=== PATIENT | male | born 1990 | race Caucasian/White ===

== ENCOUNTER 2022-06-25 03:53 | Inpatient (IN) | payer OTHER, SELFPAY ==
[2022-06-25] VITALS (14 sets, daily range): BP systolic 94–124; BP diastolic 57–78; PULSE 92–116; RESP 14–27; TEMP 36.6–37.1; O2SAT 95–99; BMI 24.0
--- NOTE | ~2022-06-25 | CT_ITS ---
EXAMINATION: CT HEAD WITHOUT CONTRAST CLINICAL INFORMATION: Altered mental status COMPARISON: None TECHNIQUE: Contiguous axial imaging was performed from the skull base to vertex without intravenous administration of contrast. This CT examination was performed using dose optimization techniques as appropriate, variously including the following: *Automated exposure control *Adjustment of mA and/or kV according to patient size (this includes techniques or standardized protocols for targeted exams where dose is matched to indication/reason for exam; i.e. extremities or head) *Use of iterative reconstruction technique DLP: 716 mGy-cm FINDINGS: There is no evidence of acute intracranial hemorrhage or territorial infarction. No abnormal mass effect or midline shift is seen. Mendes to white matter differentiation is well preserved. No extra-axial fluid collections are identified. The ventricles are normal in size. There is no abnormal attenuation within the brain parenchyma. The osseous structures and soft tissues are normal. The mastoid air cells and visualized portions of the paranasal sinuses are well aerated. CT/CT head/brain wo con IMPRESSION: No acute intracranial pathology.
--- NOTE | ~2022-06-25 | XR_ITS ---
EXAMINATION: XR CHEST CLINICAL INFORMATION: Change in mental status COMPARISON: None TECHNIQUE: Frontal view of the chest was obtained. FINDINGS: No significant abnormality is noted involving the heart, lungs, mediastinum, bony thorax or soft tissues. XR/XR chest 1V IMPRESSION: Unremarkable examination.
[2022-06-25 04:11] LABS: Glucose, Whole Blood 496 mg/dL (60-115)
--- NOTE | 2022-06-25 04:16 | ECG_ITS ---
Test Reason : DIZZINESS Blood Pressure : / mmHG Vent. Rate : 108 BPM Atrial Rate : 108 BPM P-R Int : 146 ms QRS Dur : 072 ms QT Int : 390 ms P-R-T Axes : 049 064 041 degrees QTc Int : 522 ms Sinus tachycardia Otherwise normal ECG No previous ECGs available Referred By: Brayan Morillo Electronically Signed By:MATHEW DENISE MD
[2022-06-25 04:25] LABS: Basophils Absolute Auto 0.1 X10*3/uL (0.0-0.2); Basophils Percent Auto 0.4 % (0-2); Hematocrit 48.2 % (42.0-52.0); Hemoglobin 16.6 g/dl (14.0-18.0); Imm Gran Abs Auto 0.14 X10*3/uL (0.00-0.03); Imm Gran Pct Auto 0.8 % (0.0-0.4); Lymphocytes Absolute Auto 1.5 X10*3/uL (1.2-4.9); Lymphocytes Percent Auto 8.8 % (20-40); MANUAL DIFF FLAG NO; Mean Corpuscular HGB Conc 34.4 g/dl (31.0-36.0); Mean Corpuscular Hemoglobin 29.2 pg (27.0-33.0); Mean Corpuscular Volume 84.9 fL (80.0-98.0); Mean Platelet Volume 9.9 fL (9.4-12.4); Monocytes Absolute Auto 0.6 X10*3/uL (0.1-1.2); Monocytes Percent Auto 3.5 % (2-11); Neutrophils Absolute Auto 14.4 x10*3/uL (2.0-8.3); Neutrophils Percent Auto 86.5 % (45-73); Platelet Count 335 X10*3/uL (160-400); Red Blood Count 5.68 X10*6/uL (4.60-5.80); Red Cell Distribution Width 11.4 % (11.0-16.0); White Blood Count 16.7 X10*3/uL (4.8-10.8)
--- NOTE | 2022-06-25 04:25 | ED.AMS ---
HPI - Altered Mental Status General Chief Complaint: Dizziness Stated Complaint: diabetic, n/v, passed out Time Seen by Provider: 06/25/22 04:13 Source: patient and other (Gerri Washington) Mode of arrival: ambulatory Limitations: altered mental status History of Present Illness HPI narrative: 31-year-old male who is brought to the emergency department by his daniel Gerri for evaluation of altered mental status and weakness. The patient's fiancee states that he has diabetes for many years but is not taking any medications. She states that yesterday morning he was not acting right. He was angry and did not appear well. He then had multiple episodes of vomiting. He eventually became very weak and altered so she was able to bring him to the emergency department for evaluation. He was too weak to walk from the car to the emergency department and he was wheeled into triage. At triage she was lethargic and brought back into the emergency department. The patient was oriented to person and place, he told me that he has whole body hurts but he had no other complaints. According to his fiancee he has been very thirsty over the past week, he has been drinking a large amount of water and has been urinating frequently. The patient has been fully vaccinated for COVID-19, he received his 3rd vaccination on 05/21/2022 (1 month prior). MD complaint: altered mental status Onset (ago): day(s) (1) Timing confirmed by: other (Gerri Washington) Severity: severe Consistency of symptoms: getting Worse Context: diabetes (Untreated times many years) Associated symptoms: malaise and nausea/vomiting Related Data Allergies Allergy/AdvReac Type Severity Reaction Status Date / Time No Known Allergies Allergy Unverified 08/05/20 17:53 Review of Systems Review of Systems: Yes Unobtainable due to mental status [facility] Past Medical History [facility] Narrative: Past medical history: Diabetes mellitus. Social history: He denies tobacco, alcohol and drug use. Social History Social History Advance Directives: No Advance Directives Information Provided: No Physical Exam ED Vital Signs: Vital Signs - 24 hr 06/25/22 03:55 06/25/22 04:26 06/25/22 04:32 Temperature 98.7 F Pulse Rate 97 96 Respiratory Rate 14 23 H Blood Pressure 94/60 115/73 124/78 Pulse Oximetry 99 96 Oxygen Delivery Method Room Air Room Air 06/25/22 04:44 06/25/22 05:14 06/25/22 05:39 Temperature Pulse Rate 115 H 116 H 116 H Respiratory Rate 22 H 23 H Blood Pressure 123/73 124/70 108/61 Pulse Oximetry 98 99 98 Oxygen Delivery Method Room Air Room Air Room Air BMI result Body Mass Index 24.0 Const Other: Lethargic, weak appearing male patient, he is oriented to person and place, he is pleasant and cooperative [facility] Head: Yes normal to inspection, Yes normocephalic and Yes atraumatic Ears: external ears normal General nose exam: Normal external nose present Face and sinus: Yes normal facial exam Mouth: Normal oral and palatal mucosa present Throat: Yes posterior oropharynx normal Eyes General: appearance normal, both eyes and all related structures Pupils: Equal, round and reactive pupils present Neck Neck: Yes normal visual inspection, Yes no lymphadenopathy, Yes trachea midline and Yes supple Chest Chest palpation & inspection: normal inspection of the chest and normal palpation of entire chest wall Resp Effort & Inspection: normal respiratory effort and able to speak in complete sentences Auscultation: clear to auscultation bilaterally Cardio Rate: regular rate Rhythm: regular rhythm Heart sounds: S1 normal heart sound present, S2 normal heart sound present and no murmurs GI Inspection: Yes normal to inspection Palpation (GI): Soft to palpation, nontender and no guarding Auscultation: normal bowel sounds General: Yes no CVA tenderness Back/Spine/Pelvis Back: no CVA tenderness Skin General skin exam: no rashes or lesions noted Neuro Cranial nerves: Yes CN's II-XII intact bilaterally and Yes Equal, round and reactive pupils present Cognition (Neuro): normal cognition Motor exam (neuro): 5/5 motor strength present throughout Extrem Other: Patient is able to move all his extremities and hold them up against gravity without difficulty General: Yes normal to inspection Psych Appearance: grossly normal Mental Status: other (Lethargic but oriented to person and place) Speech and movement: Slowed speech present (Psych) Attitude: cooperative Course Course Course Narrative: 31-year-old male with a history of diabetes mellitus who has not been on medications for many years presents emergency department for evaluation of change in mental status which started yesterday morning and increased weakness. Patient's fiancee did note that the patient has had increased thirst increased urinary frequency. On presentation the patient is lethargic but oriented to person place and was able answer questions. The patient's neurologic exam is nonfocal. Patient's vital signs did reveal an elevated respiratory of 23 otherwise were unremarkable. Patient's point of care glucose was 527. I did order laboratory evaluation to include CBC, CMP, lactate, urine drug screen, urinalysis, acetone, COVID-19 . I will obtain a CT scan of the brain and chest x-ray as well. Patient was ordered to get normal saline IV x2 L and regular insulin 10 units IV. 0441: The lab did call a critical lab value on this patient. The patient's lactic acid is 9.3. The patient has been ordered to get 2 L of normal saline IV. 0604: I did receive a critical care glucose notification with a glucose pain 569. The patient's laboratory evaluation states revealed an elevated WBC 79434, elevated lactate 9.3, elevated glucose 569, bicarb of 16 with an an gap of 32. COVID-19 was negative phosphorus was normal at 4.7 pH was low at 7.25. Patient did complete his fluid bolus and had a repeat point of care glucose of 416. Patient was ordered to get a 2nd bolus of regular insulin 10 units IV. I did discuss the patient's presentation with the covering hospitalist who recommended patient get a repeat lactic acid and repeat BMP. Patient kept in the emergency department these tests repeated to determine if the patient needs to be admitted to the intermediate care unit or to the intensive care unit 0755: Patient's repeat BMP at 06:38 hours revealed a glucose of 369, bicarb of 13 and an anion gap 22. The patient's anion gap improved however his bicarb decreased. I ordered lactated Ringer's x1 L wide open and the patient will be started on an insulin drip as per protocol. CT scan of the brain revealed no acute pathology. Chest x-ray revealed no acute disease. I did discuss the patient's presentation with covering technical maintenance specialist, Dr. Jhonny Toro who recommended giving the patient oral potassium 40 mEq. Patient will be admitted to the intensive care unit for further treat. MDM - Altered Mental Status Lab Data Attestation: I reviewed the patient's lab results. Result diagrams: 06/25/22 04:18 06/25/22 06:38 Labs: Lab Results 06/25/22 06/25/22 06/25/22 Range/Units 04:03 04:15 04:18 WBC (4.8-10.8) X10*3/uL RBC (4.60-5.80) X10*6/uL Hgb (14.0-18.0) g/dl Hct (42.0-52.0) % MCV (80.0-98.0) fL MCH (27.0-33.0) pg MCHC (31.0-36.0) g/dl RDW (11.0-16.0) % Plt Count (160-400) X10*3/uL MPV (9.4-12.4) fL Immature Gran % (Auto) (0.0-0.4) % Neut % (Auto) (45-73) % Lymph % (Auto) (20-40) % Gregory % (Auto) (2-11) % Eos % (Auto) (0-4) % Baso % (Auto) (0-2) % Lymph # (Auto) (1.2-4.9) X10*3/uL Gregory # (Auto) (0.1-1.2) X10*3/uL Eos # (Auto) (0.0-0.4) X10*3/uL Baso # (Auto) (0.0-0.2) X10*3/uL Abs Immat Gran (auto) (0.00-0.03) X10*3/uL Absolute Neuts (auto) (2.0-8.3) x10*3/uL Absolute Nucleated RBC (0.0-0.012) X10*3/uL Nucleated RBC % (auto) (0.0-0.2) /100WBC PT (10.0-13.1) SEC INR (0.9-1.1) APTT (26.0-36.4) SEC VBG pH (7.32-7.43) VBG pCO2 mmHg VBG pO2 mmHg VBG HCO3 (22-26) mmol/L VBG O2 Saturation % VBG Base Excess mmol/L Sodium 140 (135-145) mmol/L Potassium 3.5 (3.3-5.1) mmol/L Chloride 96 (96-108) mmol/L Carbon Dioxide 16 L (22-29) mmol/L Anion Gap 32 H (12-20) BUN 10 (9-16) mg/dL Creatinine 1.68 H (0.5-1.4) mg/dL Estim Creat Clear Calc 52.3 Estimated GFR 47 POC Glucose 496 H* 526 H* (60-115) mg/dL Random Glucose 569 H* (60-115) mg/dL Lactic Acid (0.5-2.0) mmol/L Lactic Acid F/U @ 2Hr (0.5-2.0) mmol/L Calcium 10.2 (8.4-10.2) mg/dL Phosphorus 4.7 H (2.7-4.5) mg/dL Magnesium 2.0 (1.6-2.6) mg/dL Total Bilirubin 0.8 (0.0-1.0) mg/dL AST 59 H (5-37) U/L ALT 72 H (0-40) U/L Alkaline Phosphatase 75 (39-117) U/L Total Creatine Kinase 86 (38-174) U/L Troponin I High Sens (<3.5-35.0) ng/L Total Protein 8.7 H (6.5-8.0) g/dL Albumin 5.1 H (3.5-5.0) g/dL TSH (0.32-4.0) uIU/mL Urine Color Urine Appearance Urine pH (5.0-8.0) Ur Specific [place] (1.005-1.025) Urine Protein (NEG-TRACE) MG/DL Urine Glucose (UA) (NEG) MG/DL Urine Ketones (NEG) MG/DL Urine Blood (NEG) Urine Nitrite (NEG) Ur Leukocyte Esterase (NEG) Urine Opiates Screen (Not Detect) Urine Fentanyl Screen (Not Detect) Ur Barbiturates Screen (Not Detect) Ur Phencyclidine Scrn (Not Detect) Ur Amphetamines Screen (Not Detect) U Benzodiazepines Scrn (Not Detect) Urine Cocaine Screen (Not Detect) U Marijuana (THC) Screen (Not Detect) Ethyl Alcohol mg/dL Acetone, Qual (Negative) COVID-19 (MICHAEL) (Negative) COVID-19 Clin Com 06/25/22 06/25/22 06/25/22 Range/Units 04:18 04:18 04:18 WBC 16.7 H (4.8-10.8) X10*3/uL RBC 5.68 (4.60-5.80) X10*6/uL Hgb 16.6 (14.0-18.0) g/dl Hct 48.2 (42.0-52.0) % MCV 84.9 (80.0-98.0) fL MCH 29.2 (27.0-33.0) pg MCHC 34.4 (31.0-36.0) g/dl RDW 11.4 (11.0-16.0) % Plt Count 335 (160-400) X10*3/uL MPV 9.9 (9.4-12.4) fL Immature Gran % (Auto) 0.8 H (0.0-0.4) % Neut % (Auto) 86.5 H (45-73) % Lymph % (Auto) 8.8 L (20-40) % Gregory % (Auto) 3.5 (2-11) % Eos % (Auto) 0.0 (0-4) % Baso % (Auto) 0.4 (0-2) % Lymph # (Auto) 1.5 (1.2-4.9) X10*3/uL Gregory # (Auto) 0.6 (0.1-1.2) X10*3/uL Eos # (Auto) 0.0 (0.0-0.4) X10*3/uL Baso # (Auto) 0.1 (0.0-0.2) X10*3/uL Abs Immat Gran (auto) 0.14 H (0.00-0.03) X10*3/uL Absolute Neuts (auto) 14.4 H (2.0-8.3) x10*3/uL Absolute Nucleated RBC 0.000 (0.0-0.012) X10*3/uL Nucleated RBC % (auto) 0.0 (0.0-0.2) /100WBC PT 11.0 (10.0-13.1) SEC INR 1.0 (0.9-1.1) APTT 32.0 (26.0-36.4) SEC VBG pH (7.32-7.43) VBG pCO2 mmHg VBG pO2 mmHg VBG HCO3 (22-26) mmol/L VBG O2 Saturation % VBG Base Excess mmol/L Sodium (135-145) mmol/L Potassium (3.3-5.1) mmol/L Chloride (96-108) mmol/L Carbon Dioxide (22-29) mmol/L Anion Gap (12-20) BUN (9-16) mg/dL Creatinine (0.5-1.4) mg/dL Estim Creat Clear Calc Estimated GFR POC Glucose (60-115) mg/dL Random Glucose (60-115) mg/dL Lactic Acid 9.3 H* (0.5-2.0) mmol/L Lactic Acid F/U @ 2Hr (0.5-2.0) mmol/L Calcium (8.4-10.2) mg/dL Phosphorus (2.7-4.5) mg/dL Magnesium (1.6-2.6) mg/dL Total Bilirubin (0.0-1.0) mg/dL AST (5-37) U/L ALT (0-40) U/L Alkaline Phosphatase (39-117) U/L Total Creatine Kinase (38-174) U/L Troponin I High Sens (<3.5-35.0) ng/L Total Protein (6.5-8.0) g/dL Albumin (3.5-5.0) g/dL TSH (0.32-4.0) uIU/mL Urine Color Urine Appearance Urine pH (5.0-8.0) Ur Specific [place] (1.005-1.025) Urine Protein (NEG-TRACE) MG/DL Urine Glucose (UA) (NEG) MG/DL Urine Ketones (NEG) MG/DL Urine Blood (NEG) Urine Nitrite (NEG) Ur Leukocyte Esterase (NEG) Urine Opiates Screen (Not Detect) Urine Fentanyl Screen (Not Detect) Ur Barbiturates Screen (Not Detect) Ur Phencyclidine Scrn (Not Detect) Ur Amphetamines Screen (Not Detect) U Benzodiazepines Scrn (Not Detect) Urine Cocaine Screen (Not Detect) U Marijuana (THC) Screen (Not Detect) Ethyl Alcohol mg/dL Acetone, Qual (Negative) COVID-19 (MICHAEL) (Negative) COVID-19 Clin Com 06/25/22 06/25/22 06/25/22 Range/Units 04:18 04:18 04:18 WBC (4.8-10.8) X10*3/uL RBC (4.60-5.80) X10*6/uL Hgb (14.0-18.0) g/dl Hct (42.0-52.0) % MCV (80.0-98.0) fL MCH (27.0-33.0) pg MCHC (31.0-36.0) g/dl RDW (11.0-16.0) % Plt Count (160-400) X10*3/uL MPV (9.4-12.4) fL Immature Gran % (Auto) (0.0-0.4) % Neut % (Auto) (45-73) % Lymph % (Auto) (20-40) % Gregory % (Auto) (2-11) % Eos % (Auto) (0-4) % Baso % (Auto) (0-2) % Lymph # (Auto) (1.2-4.9) X10*3/uL Gregory # (Auto) (0.1-1.2) X10*3/uL Eos # (Auto) (0.0-0.4) X10*3/uL Baso # (Auto) (0.0-0.2) X10*3/uL Abs Immat Gran (auto) (0.00-0.03) X10*3/uL Absolute Neuts (auto) (2.0-8.3) x10*3/uL Absolute Nucleated RBC (0.0-0.012) X10*3/uL Nucleated RBC % (auto) (0.0-0.2) /100WBC PT (10.0-13.1) SEC INR (0.9-1.1) APTT (26.0-36.4) SEC VBG pH (7.32-7.43) VBG pCO2 mmHg VBG pO2 mmHg VBG HCO3 (22-26) mmol/L VBG O2 Saturation % VBG Base Excess mmol/L Sodium (135-145) mmol/L Potassium (3.3-5.1) mmol/L Chloride (96-108) mmol/L Carbon Dioxide (22-29) mmol/L Anion Gap (12-20) BUN (9-16) mg/dL Creatinine (0.5-1.4) mg/dL Estim Creat Clear Calc Estimated GFR POC Glucose (60-115) mg/dL Random Glucose (60-115) mg/dL Lactic Acid (0.5-2.0) mmol/L Lactic Acid F/U @ 2Hr (0.5-2.0) mmol/L Calcium (8.4-10.2) mg/dL Phosphorus (2.7-4.5) mg/dL Magnesium (1.6-2.6) mg/dL Total Bilirubin (0.0-1.0) mg/dL AST (5-37) U/L ALT (0-40) U/L Alkaline Phosphatase (39-117) U/L Total Creatine Kinase (38-174) U/L Troponin I High Sens < 3.5 (<3.5-35.0) ng/L Total Protein (6.5-8.0) g/dL Albumin (3.5-5.0) g/dL TSH 0.49 (0.32-4.0) uIU/mL Urine Color Urine Appearance Urine pH (5.0-8.0) Ur Specific [place] (1.005-1.025) Urine Protein (NEG-TRACE) MG/DL Urine Glucose (UA) (NEG) MG/DL Urine Ketones (NEG) MG/DL Urine Blood (NEG) Urine Nitrite (NEG) Ur Leukocyte Esterase (NEG) Urine Opiates Screen (Not Detect) Urine Fentanyl Screen (Not Detect) Ur Barbiturates Screen (Not Detect) Ur Phencyclidine Scrn (Not Detect) Ur Amphetamines Screen (Not Detect) U Benzodiazepines Scrn (Not Detect) Urine Cocaine Screen (Not Detect) U Marijuana (THC) Screen (Not Detect) Ethyl Alcohol < 10 mg/dL Acetone, Qual Small H (Negative) COVID-19 (MICHAEL) (Negative) COVID-19 Clin Com 06/25/22 06/25/22 06/25/22 Range/Units 04:23 05:27 05:31 WBC (4.8-10.8) X10*3/uL RBC (4.60-5.80) X10*6/uL Hgb (14.0-18.0) g/dl Hct (42.0-52.0) % MCV (80.0-98.0) fL MCH (27.0-33.0) pg MCHC (31.0-36.0) g/dl RDW (11.0-16.0) % Plt Count (160-400) X10*3/uL MPV (9.4-12.4) fL Immature Gran % (Auto) (0.0-0.4) % Neut % (Auto) (45-73) % Lymph % (Auto) (20-40) % Gregory % (Auto) (2-11) % Eos % (Auto) (0-4) % Baso % (Auto) (0-2) % Lymph # (Auto) (1.2-4.9) X10*3/uL Gregory # (Auto) (0.1-1.2) X10*3/uL Eos # (Auto) (0.0-0.4) X10*3/uL Baso # (Auto) (0.0-0.2) X10*3/uL Abs Immat Gran (auto) (0.00-0.03) X10*3/uL Absolute Neuts (auto) (2.0-8.3) x10*3/uL Absolute Nucleated RBC (0.0-0.012) X10*3/uL Nucleated RBC % (auto) (0.0-0.2) /100WBC PT (10.0-13.1) SEC INR (0.9-1.1) APTT (26.0-36.4) SEC VBG pH 7.25 L (7.32-7.43) VBG pCO2 30 mmHg VBG pO2 69 mmHg VBG HCO3 13 L (22-26) mmol/L VBG O2 Saturation 89.0 % VBG Base Excess -11.8 mmol/L Sodium (135-145) mmol/L Potassium (3.3-5.1) mmol/L Chloride (96-108) mmol/L Carbon Dioxide (22-29) mmol/L Anion Gap (12-20) BUN (9-16) mg/dL Creatinine (0.5-1.4) mg/dL Estim Creat Clear Calc Estimated GFR POC Glucose 416 H* (60-115) mg/dL Random Glucose (60-115) mg/dL Lactic Acid (0.5-2.0) mmol/L Lactic Acid F/U @ 2Hr (0.5-2.0) mmol/L Calcium (8.4-10.2) mg/dL Phosphorus (2.7-4.5) mg/dL Magnesium (1.6-2.6) mg/dL Total Bilirubin (0.0-1.0) mg/dL AST (5-37) U/L ALT (0-40) U/L Alkaline Phosphatase (39-117) U/L Total Creatine Kinase (38-174) U/L Troponin I High Sens (<3.5-35.0) ng/L Total Protein (6.5-8.0) g/dL Albumin (3.5-5.0) g/dL TSH (0.32-4.0) uIU/mL Urine Color Urine Appearance Urine pH (5.0-8.0) Ur Specific [place] (1.005-1.025) Urine Protein (NEG-TRACE) MG/DL Urine Glucose (UA) (NEG) MG/DL Urine Ketones (NEG) MG/DL Urine Blood (NEG) Urine Nitrite (NEG) Ur Leukocyte Esterase (NEG) Urine Opiates Screen (Not Detect) Urine Fentanyl Screen (Not Detect) Ur Barbiturates Screen (Not Detect) Ur Phencyclidine Scrn (Not Detect) Ur Amphetamines Screen (Not Detect) U Benzodiazepines Scrn (Not Detect) Urine Cocaine Screen (Not Detect) U Marijuana (THC) Screen (Not Detect) Ethyl Alcohol mg/dL Acetone, Qual (Negative) COVID-19 (MICHAEL) Negative (Negative) COVID-19 Clin Com See Note 06/25/22 06/25/22 06/25/22 Range/Units 05:45 05:45 06:38 WBC (4.8-10.8) X10*3/uL RBC (4.60-5.80) X10*6/uL Hgb (14.0-18.0) g/dl Hct (42.0-52.0) % MCV (80.0-98.0) fL MCH (27.0-33.0) pg MCHC (31.0-36.0) g/dl RDW (11.0-16.0) % Plt Count (160-400) X10*3/uL MPV (9.4-12.4) fL Immature Gran % (Auto) (0.0-0.4) % Neut % (Auto) (45-73) % Lymph % (Auto) (20-40) % Gregory % (Auto) (2-11) % Eos % (Auto) (0-4) % Baso % (Auto) (0-2) % Lymph # (Auto) (1.2-4.9) X10*3/uL Gregory # (Auto) (0.1-1.2) X10*3/uL Eos # (Auto) (0.0-0.4) X10*3/uL Baso # (Auto) (0.0-0.2) X10*3/uL Abs Immat Gran (auto) (0.00-0.03) X10*3/uL Absolute Neuts (auto) (2.0-8.3) x10*3/uL Absolute Nucleated RBC (0.0-0.012) X10*3/uL Nucleated RBC % (auto) (0.0-0.2) /100WBC PT (10.0-13.1) SEC INR (0.9-1.1) APTT (26.0-36.4) SEC VBG pH (7.32-7.43) VBG pCO2 mmHg VBG pO2 mmHg VBG HCO3 (22-26) mmol/L VBG O2 Saturation % VBG Base Excess mmol/L Sodium 136 (135-145) mmol/L Potassium 3.7 (3.3-5.1) mmol/L Chloride 105 (96-108) mmol/L Carbon Dioxide 13 L (22-29) mmol/L Anion Gap 22 H (12-20) BUN 9 (9-16) mg/dL Creatinine 1.17 (0.5-1.4) mg/dL Estim Creat Clear Calc 75.1 Estimated GFR > 60 POC Glucose (60-115) mg/dL Random Glucose 369 H* (60-115) mg/dL Lactic Acid (0.5-2.0) mmol/L Lactic Acid F/U @ 2Hr (0.5-2.0) mmol/L Calcium 8.3 L D (8.4-10.2) mg/dL Phosphorus (2.7-4.5) mg/dL Magnesium (1.6-2.6) mg/dL Total Bilirubin (0.0-1.0) mg/dL AST (5-37) U/L ALT (0-40) U/L Alkaline Phosphatase (39-117) U/L Total Creatine Kinase (38-174) U/L Troponin I High Sens (<3.5-35.0) ng/L Total Protein (6.5-8.0) g/dL Albumin (3.5-5.0) g/dL TSH (0.32-4.0) uIU/mL Urine Color YELLOW Urine Appearance CLEAR Urine pH 5.5 (5.0-8.0) Ur Specific [place] 1.020 (1.005-1.025) Urine Protein TRACE (NEG-TRACE) MG/DL Urine Glucose (UA) 500 H (NEG) MG/DL Urine Ketones >=80 (NEG) MG/DL Urine Blood NEG (NEG) Urine Nitrite NEG (NEG) Ur Leukocyte Esterase NEG (NEG) Urine Opiates Screen Not Detected (Not Detect) Urine Fentanyl Screen Not Detected (Not Detect) Ur Barbiturates Screen Not Detected (Not Detect) Ur Phencyclidine Scrn Not Detected (Not Detect) Ur Amphetamines Screen Not Detected (Not Detect) U Benzodiazepines Scrn Not Detected (Not Detect) Urine Cocaine Screen Not Detected (Not Detect) U Marijuana (THC) Screen Not Detected (Not Detect) Ethyl Alcohol mg/dL Acetone, Qual (Negative) COVID-19 (MICHAEL) (Negative) COVID-19 Clin Com 06/25/22 Range/Units 06:38 WBC (4.8-10.8) X10*3/uL RBC (4.60-5.80) X10*6/uL Hgb (14.0-18.0) g/dl Hct (42.0-52.0) % MCV (80.0-98.0) fL MCH (27.0-33.0) pg MCHC (31.0-36.0) g/dl RDW (11.0-16.0) % Plt Count (160-400) X10*3/uL MPV (9.4-12.4) fL Immature Gran % (Auto) (0.0-0.4) % Neut % (Auto) (45-73) % Lymph % (Auto) (20-40) % Gregory % (Auto) (2-11) % Eos % (Auto) (0-4) % Baso % (Auto) (0-2) % Lymph # (Auto) (1.2-4.9) X10*3/uL Gregory # (Auto) (0.1-1.2) X10*3/uL Eos # (Auto) (0.0-0.4) X10*3/uL Baso # (Auto) (0.0-0.2) X10*3/uL Abs Immat Gran (auto) (0.00-0.03) X10*3/uL Absolute Neuts (auto) (2.0-8.3) x10*3/uL Absolute Nucleated RBC (0.0-0.012) X10*3/uL Nucleated RBC % (auto) (0.0-0.2) /100WBC PT (10.0-13.1) SEC INR (0.9-1.1) APTT (26.0-36.4) SEC VBG pH (7.32-7.43) VBG pCO2 mmHg VBG pO2 mmHg VBG HCO3 (22-26) mmol/L VBG O2 Saturation % VBG Base Excess mmol/L Sodium (135-145) mmol/L Potassium (3.3-5.1) mmol/L Chloride (96-108) mmol/L Carbon Dioxide (22-29) mmol/L Anion Gap (12-20) BUN (9-16) mg/dL Creatinine (0.5-1.4) mg/dL Estim Creat Clear Calc Estimated GFR POC Glucose (60-115) mg/dL Random Glucose (60-115) mg/dL Lactic Acid (0.5-2.0) mmol/L Lactic Acid F/U @ 2Hr 6.6 H* (0.5-2.0) mmol/L Calcium (8.4-10.2) mg/dL Phosphorus (2.7-4.5) mg/dL Magnesium (1.6-2.6) mg/dL Total Bilirubin (0.0-1.0) mg/dL AST (5-37) U/L ALT (0-40) U/L Alkaline Phosphatase (39-117) U/L Total Creatine Kinase (38-174) U/L Troponin I High Sens (<3.5-35.0) ng/L Total Protein (6.5-8.0) g/dL Albumin (3.5-5.0) g/dL TSH (0.32-4.0) uIU/mL Urine Color Urine Appearance Urine pH (5.0-8.0) Ur Specific [place] (1.005-1.025) Urine Protein (NEG-TRACE) MG/DL Urine Glucose (UA) (NEG) MG/DL Urine Ketones (NEG) MG/DL Urine Blood (NEG) Urine Nitrite (NEG) Ur Leukocyte Esterase (NEG) Urine Opiates Screen (Not Detect) Urine Fentanyl Screen (Not Detect) Ur Barbiturates Screen (Not Detect) Ur Phencyclidine Scrn (Not Detect) Ur Amphetamines Screen (Not Detect) U Benzodiazepines Scrn (Not Detect) Urine Cocaine Screen (Not Detect) U Marijuana (THC) Screen (Not Detect) Ethyl Alcohol mg/dL Acetone, Qual (Negative) COVID-19 (MICHAEL) (Negative) COVID-19 Clin Com ECG Data ECG #1: Interpretation: 0458: Sinus tachycardia with a rate of 108, normal MO interval, normal QRS duration, prolonged QTC of 522 milliseconds, no ST segment elevation, no ST segment depression, no T-wave abnormalities, small Q-wave in lead 3, no PACs, no PVCs. Critical Care Time Critical Care Time Critical Care Time: Yes Total Critical Care Time: 65 Attestation: Critical Care: The patient was critically ill with a high probability of imminent or life threatening deterioration. I spent greater than 30 minutes of discontinuous time evaluating the patient,delivering critical care at the bedside, discussing and evaluating pertinent data with consultants. Critical care time does not include time spent performing separately billable procedures or teaching. Total time spent performing critical care was 65 minutes.
[2022-06-25] MEDS: Piperacillin Sodium/Tazobactam 4.5 GM in 0.9 % Sodium Chloride 100 ML IV (04:27)
[2022-06-25] MEDS: 0.9 % Sodium Chloride 1,905.09 ML 1905.09 ML IVCONT (04:27)
[2022-06-25] MEDS: Insulin Regular, Human 100 UNIT/ML 3 ML VIAL 10 UNIT IVPUSH ×2 (04:28→06:01)
[2022-06-25 04:40] LABS: Lactic Acid 9.3 mmol/L (0.5-2.0)
[2022-06-25 04:45] LABS: Acetone, serum QL Small (Negative)
[2022-06-25 04:47] LABS: Troponin-I High Sensitivity < 3.5 ng/L (<3.5-35.0)
[2022-06-25 04:51] LABS: Ethanol < 10 mg/dL
[2022-06-25 05:00] LABS: Alanine Aminotransferase 72 U/L (0-40); Albumin Level 5.1 g/dL (3.5-5.0); Alkaline Phosphatase 75 U/L (39-117); Anion Gap 32 (12-20); Aspartate Amino Transferase 59 U/L (5-37); Bilirubin Total 0.8 mg/dL (0.0-1.0); Blood Urea Nitrogen 10 mg/dL (9-16); Calcium 10.2 mg/dL (8.4-10.2); Carbon Dioxide 16 mmol/L (22-29); Chloride 96 mmol/L (96-108); Creatinine Clr Calc Pharmacy 52.3; Estimated Glomerular Filt Rate 47; Glucose Random 569 mg/dL (60-115); Phosphorus 4.7 mg/dL (2.7-4.5); Potassium 3.5 mmol/L (3.3-5.1); Sodium 140 mmol/L (135-145); Total Protein 8.7 g/dL (6.5-8.0)
[2022-06-25 05:14] LABS: TSH reflex Free T4 0.49 uIU/mL (0.32-4.0)
[2022-06-25 05:15] LABS: COVID-19 Test Negative (Negative)
[2022-06-25 05:31] LABS: Glucose, Whole Blood 416 mg/dL (60-115)
[2022-06-25 05:31] LABS: Glucose, Whole Blood 526 mg/dL (60-115)
[2022-06-25 05:33] LABS: Venous Blood Gas Refer to POC result
[2022-06-25 05:35] LABS: VBG Base Excess -11.8 mmol/L; VBG HCO3 13 mmol/L (22-26); VBG pCO2 30 mmHg; VBG pH 7.25 (7.32-7.43); VBG pO2 69 mmHg
--- NOTE | 2022-06-25 05:44 | PC.NURSE ---
pt BS [id number], aware.
[2022-06-25 05:52] LABS: Appearance Urine CLEAR; Color Urine YELLOW; Glucose Urine UA 500 MG/DL (NEG); Leukocyte Esterase Urine NEG (NEG); Nitrite Urine NEG (NEG); PH 5.5 (5.0-8.0); Urine Blood NEG (NEG); Urine Ketones >=80 MG/DL (NEG); Urine Protein TRACE MG/DL (NEG-TRACE)
[2022-06-25 06:06] LABS: Amphetamine Screen Urine Not Detected (Not Detect); Barbiturates, Urine Not Detected (Not Detect); Benzodiazepines Screen Urine Not Detected (Not Detect); Cannabinoid Screen Urine Not Detected (Not Detect); Cocaine Screen Urine Not Detected (Not Detect); Fentanyl, urine Not Detected (Not Detect); Opiate Screen Urine Not Detected (Not Detect); Phencyclidine Screen Urine Not Detected (Not Detect)
[2022-06-25 06:25] LABS: Reflex Lactate? Lactic Acid Added
[2022-06-25 06:57] LABS: ~Lactic Acid-LAB USE ONLY 6.6 mmol/L (0.5-2.0)
[2022-06-25 07:01] LABS: Anion Gap 22 (12-20); Blood Urea Nitrogen 9 mg/dL (9-16); Calcium 8.3 mg/dL (8.4-10.2); Carbon Dioxide 13 mmol/L (22-29); Chloride 105 mmol/L (96-108); Creatinine Clr Calc Pharmacy 75.1; Estimated Glomerular Filt Rate > 60; Glucose Random 369 mg/dL (60-115); Potassium 3.7 mmol/L (3.3-5.1); Sodium 136 mmol/L (135-145)
[2022-06-25 08:14] LABS: Cancel Lactic Acid Canceled
[2022-06-25] MEDS: Potassium Chloride Packet 20 MEQ PACKET 40 MEQ PO ×3 (08:17→18:02)
[2022-06-25] MEDS: Lactated Ringers 1,000 ML 999 ML IV (08:17)
[2022-06-25] MEDS: Insulin Regular/NS 100 UNIT/100 ML PLAST..BAG IVCONT (08:20)
--- NOTE | 2022-06-25 08:24 | PC.NURSE ---
report taken from erika rn pt here for ams r/t ?dka. pt has been non compliant w self care, per partners report. pt is alert and oriented to self time and place, unsure about context of ed arrival or precipitating events, no acute distress, insulin drip started with maintenance fluids. calm and cooperative w care. likely awaiting icu bed assignment.
[2022-06-25 08:38] LABS: Hemoglobin A1c % > 14.0 %
[2022-06-25 08:44] LABS: Magnesium 1.6 mg/dL (1.6-2.6); Phosphorus 1.3 mg/dL (2.7-4.5)
[2022-06-25 09:42] LABS: Glucose, Whole Blood 233 mg/dL (60-115)
[2022-06-25 10:47] LABS: Glucose, Whole Blood 254 mg/dL (60-115)
[2022-06-25] MEDS: Lactated Ringers 1,000 ML 250 ML IVCONT ×2 (11:04→15:08)
[2022-06-25] MEDS: Sodium,Potassium Phosphates POWD.PACK 2 PACKET PO ×4 (11:05→21:25)
[2022-06-25] MEDS: Magnesium Sulfate/H2O 2 GM/50 ML PIGGYBACK IV (11:05)
[2022-06-25] MEDS: Insulin Lispro 100 UNIT/ML 3 ML VIAL 20 UNIT SUBCUT (11:14)
--- NOTE | 2022-06-25 11:15 | P.HPCC_ITS ---
History of Present Illness Date of Service: 06/25/22 Attending physician on admission: Jhonny Toro Chief Complaint: DKA Mr. Matthews is admitted to the ICU this morning w DKA. The patient is a 31 yo M male new to [facility] w PMHx of diabetes for many years, not taking any medications. The patient was brought ambulatory to the ED this morning by his fianc?e for evaluation of altered mental status and weakness.? Over the past week has had polyuria and polydipsia.? Lost 20 lb of weight over the last period of time. ?Not acting right since yesterday and had multiple episodes of vomiting and became very weak, so she brought him to the ED this morning..? He was too weak to walk from the car to the emergency department and he was wheeled into triage.? At triage he was lethargic and brought back into the emergency depa rtment.? He is COVID vaccinated x3. In the ED, the patient was lethargic but oriented, able to answer questions.? He was afebrile.? Heart rate was 90s, blood pressure 94/60, respiratory rate 14, sat 99% on room air.? General physical exam was unremarkable. Labs in the ED were notable for white count of 16, hemoglobin of 16, glucose 569, BUN/creatinine 10/1.6, sodium 140, potassium 3.5, bicarb 16, anion gap 32, phosphorus 4.7, mild transaminase elevation, and an albumin of 5.1. The patient was started on IV fluids and insulin.? Follow-up chemistries two hours later showed a decrease in his bicarb to 13, a decrease in an anion gap to 22, and a glucose of 369.? The patient was admitted to the ICU. On arrival here, the point of care was 233, with insulin going at 3 units an hour.? The patient looks entirely well.? Heart rate is 108, blood pressure 122/62, respiratory rate is about 20, and sat is 96% on room air.? He is afebrile.? Fully alert and oriented.? No jugular venous distention with the head of bed at about 40 degrees.? Chest clear to auscultation, with normal expiratory phase.? Heart rate and rhythm regular, with normal-sounding S1 and S2, with no murmur or gallops.? Abdomen is benign.? He has no peripheral edema. LABORATORY DATA:? Hemoglobin A1c is > 14. IMPRESSION: 1. Longstanding diabetes, medication noncompliance.f 2. DKA. 3. Hypovolemia. 4. Acute kidney injury.? 2? above. 5. Hypokalemia.? Replete orally. 6. Hypophosphatemia.? Replete orally. We will continue volume resuscitation with LR 250 cc/hour.? DKA is mild.? This is the perfect DKA patient to treat with subcutaneous insulin. ?Could probably also treat with oral rehydration. ?Start w 20 u Lispro SQ, recheck POC q1hr.? Otherwise, usual management.? Recheck labs at 3pm. [facility] Social History Social History Household Members: Significant Other and Children Household Members Other:: 3 Housing: Apartment Do you presently have visiting nurse or other home services: No Patient Tobacco Use Status: Never used Tobacco Use of substances other than those prescribed or required for medical reasons: No Currently Displaying Signs/Symptoms of Drug Intoxication Withdrawal: No Any prior treatment program specific to substance use: No Have you been hit, kicked, punched, or otherwise hurt by someone within the past year? If so, by whom?: No Do you feel safe in your current relationship?: No Is there a partner from a previous relationship who is making you feel unsafe now?: No Are you made to feel afraid or neglected: No Advance Directives: No Advance Directives Information Provided: No Do you have thoughts of harming others: None Do you have a plan to hurt others: No Plan Recently lost weight without trying: No Eating poorly because of decreased appetite: No Poor oral hygiene: Yes Meds Allergies Allergy/AdvReac Type Severity Reaction Status Date / Time No Known Allergies Allergy Unverified 08/05/20 17:53 Active Medications: Current Medications Insulin Human Regular (Myxredlin) 100 unit in 100 mls @ 0 mls/hr IVCONT .Q0M COUNTS INCLUDE 234 BEDS AT THE [facility]; Protocol Last Titration: 06/25/22 09:38 Dose: 3 unit/hr, 3 mls/hr Magnesium Sulfate (Magnesium Sulfate/H2o) 2 gm in 50 mls @ 25 mls/hr IV ONCE STA Stop: 06/25/22 12:47 Last Admin: 06/25/22 11:05 Dose: 25 mls/hr Lactated Ringer's (Lr) 1,000 mls @ 250 mls/hr IVCONT .Q4H COUNTS INCLUDE 234 BEDS AT THE [facility] Last Admin: 06/25/22 11:04 Dose: 250 mls/hr Insulin Human Lispro (Insulin Lispro 100 Unit/Ml 3 Ml Vial) 20 unit SUBCUT ONCE ONE Stop: 06/25/22 11:16 Potassium Phos/Sodium Phos (Sodium,Potassium Phosphates Powd.Pack) 2 packet PO Q2H INGRIS Stop: 06/25/22 13:01 Last Admin: 06/25/22 11:05 Dose: 2 packet Home Medications Medication Instructions Recorded Confirmed Last Taken Type No Known Home Meds 06/25/22 06/25/22 Unknown History Physical Exam Vital Signs: Vital Signs: Last Vital Signs Temp 98.7 F 06/25/22 03:55 Pulse 103 H 06/25/22 11:00 Resp 14 06/25/22 11:00 BP 113/63 06/25/22 11:00 Pulse Ox 95 06/25/22 11:00 O2 Del Method 06/25/22 11:00 BMI result Body Mass Index 24.0 Results Labs CBC and Chem 7: 06/25/22 04:18 06/25/22 06:38 Labs: Laboratory Results - last 24 hr 06/25/22 06/25/22 06/25/22 04:03 04:15 04:18 MCV MCH MCHC RDW Plt Count MPV Immature Gran % (Auto) Neut % (Auto) Lymph % (Auto) [place] % (Auto) Eos % (Auto) Baso % (Auto) Lymph # (Auto) [place] # (Auto) Eos # (Auto) Baso # (Auto) Abs Immat Gran (auto) Absolute Neuts (auto) Absolute Nucleated RBC Nucleated RBC % (auto) PT INR APTT VBG pH VBG pCO2 VBG pO2 VBG HCO3 VBG O2 Saturation VBG Base Excess Anion Gap 32 H Estim Creat Clear Calc 52.3 Estimated GFR 47 POC Glucose 496 H* 526 H* Random Glucose 569 H* Estimat Average Glucose Hemoglobin A1c % Lactic Acid Lactic Acid F/U @ 2Hr Calcium 10.2 Phosphorus 4.7 H Magnesium 2.0 Total Bilirubin 0.8 AST 59 H ALT 72 H Alkaline Phosphatase 75 Total Creatine Kinase 86 Total Protein 8.7 H Albumin 5.1 H TSH Urine Color Urine Appearance Urine pH Ur Specific [place] Urine Protein Urine Glucose (UA) Urine Ketones Urine Blood Urine Nitrite Ur Leukocyte Esterase Urine Opiates Screen Urine Fentanyl Screen Ur Barbiturates Screen Ur Phencyclidine Scrn Ur Amphetamines Screen U Benzodiazepines Scrn Urine Cocaine Screen U Marijuana (THC) Screen Ethyl Alcohol Acetone, Qual COVID-19 (MICHAEL) COVID-19 [employer] 06/25/22 06/25/22 06/25/22 04:18 04:18 04:18 MCV 84.9 MCH 29.2 MCHC 34.4 RDW 11.4 Plt Count 335 MPV 9.9 Immature Gran % (Auto) 0.8 H Neut % (Auto) 86.5 H Lymph % (Auto) 8.8 L [place] % (Auto) 3.5 Eos % (Auto) 0.0 Baso % (Auto) 0.4 Lymph # (Auto) 1.5 [place] # (Auto) 0.6 Eos # (Auto) 0.0 Baso # (Auto) 0.1 Abs Immat Gran (auto) 0.14 H Absolute Neuts (auto) 14.4 H Absolute Nucleated RBC 0.000 Nucleated RBC % (auto) 0.0 PT 11.0 INR 1.0 APTT 32.0 VBG pH VBG pCO2 VBG pO2 VBG HCO3 VBG O2 Saturation VBG Base Excess Anion Gap Estim Creat Clear Calc Estimated GFR POC Glucose Random Glucose Estimat Average Glucose Hemoglobin A1c % Lactic Acid 9.3 H* Lactic Acid F/U @ 2Hr Calcium Phosphorus Magnesium Total Bilirubin AST ALT Alkaline Phosphatase Total Creatine Kinase Total Protein Albumin TSH Urine Color Urine Appearance Urine pH Ur Specific [place] Urine Protein Urine Glucose (UA) Urine Ketones Urine Blood Urine Nitrite Ur Leukocyte Esterase Urine Opiates Screen Urine Fentanyl Screen Ur Barbiturates Screen Ur Phencyclidine Scrn Ur Amphetamines Screen U Benzodiazepines Scrn Urine Cocaine Screen U Marijuana (THC) Screen Ethyl Alcohol Acetone, Qual COVID-19 (MICHAEL) COVID-19 [employer] 06/25/22 06/25/22 06/25/22 04:18 04:18 04:18 MCV MCH MCHC RDW Plt Count MPV Immature Gran % (Auto) Neut % (Auto) Lymph % (Auto) [place] % (Auto) Eos % (Auto) Baso % (Auto) Lymph # (Auto) [place] # (Auto) Eos # (Auto) Baso # (Auto) Abs Immat Gran (auto) Absolute Neuts (auto) Absolute Nucleated RBC Nucleated RBC % (auto) PT INR APTT VBG pH VBG pCO2 VBG pO2 VBG HCO3 VBG O2 Saturation VBG Base Excess Anion Gap Estim Creat Clear Calc Estimated GFR POC Glucose Random Glucose Estimat Average Glucose TNP Hemoglobin A1c % > 14.0 Lactic Acid Lactic Acid F/U @ 2Hr Calcium Phosphorus Magnesium Total Bilirubin AST ALT Alkaline Phosphatase Total Creatine Kinase Total Protein Albumin TSH 0.49 Urine Color Urine Appearance Urine pH Ur Specific [place] Urine Protein Urine Glucose (UA) Urine Ketones Urine Blood Urine Nitrite Ur Leukocyte Esterase Urine Opiates Screen Urine Fentanyl Screen Ur Barbiturates Screen Ur Phencyclidine Scrn Ur Amphetamines Screen U Benzodiazepines Scrn Urine Cocaine Screen U Marijuana (THC) Screen Ethyl Alcohol < 10 Acetone, Qual Small H COVID-19 (MICHAEL) COVID-agencyQ 06/25/22 06/25/22 06/25/22 04:23 05:27 05:31 MCV MCH MCHC RDW Plt Count MPV Immature Gran % (Auto) Neut % (Auto) Lymph % (Auto) [place] % (Auto) Eos % (Auto) Baso % (Auto) Lymph # (Auto) [place] # (Auto) Eos # (Auto) Baso # (Auto) Abs Immat Gran (auto) Absolute Neuts (auto) Absolute Nucleated RBC Nucleated RBC % (auto) PT INR APTT VBG pH 7.25 L VBG pCO2 30 VBG pO2 69 VBG HCO3 13 L VBG O2 Saturation 89.0 VBG Base Excess -11.8 Anion Gap Estim Creat Clear Calc Estimated GFR POC Glucose 416 H* Random Glucose Estimat Average Glucose Hemoglobin A1c % Lactic Acid Lactic Acid F/U @ 2Hr Calcium Phosphorus Magnesium Total Bilirubin AST ALT Alkaline Phosphatase Total Creatine Kinase Total Protein Albumin TSH Urine Color Urine Appearance Urine pH Ur Specific [place] Urine Protein Urine Glucose (UA) Urine Ketones Urine Blood Urine Nitrite Ur Leukocyte Esterase Urine Opiates Screen Urine Fentanyl Screen Ur Barbiturates Screen Ur Phencyclidine Scrn Ur Amphetamines Screen U Benzodiazepines Scrn Urine Cocaine Screen U Marijuana (THC) Screen Ethyl Alcohol Acetone, Qual COVID-19 (MICHAEL) Negative COVID-[employer] See Note 06/25/22 06/25/22 06/25/22 05:45 05:45 06:38 MCV MCH MCHC RDW Plt Count MPV Immature Gran % (Auto) Neut % (Auto) Lymph % (Auto) [place] % (Auto) Eos % (Auto) Baso % (Auto) Lymph # (Auto) [place] # (Auto) Eos # (Auto) Baso # (Auto) Abs Immat Gran (auto) Absolute Neuts (auto) Absolute Nucleated RBC Nucleated RBC % (auto) PT INR APTT VBG pH VBG pCO2 VBG pO2 VBG HCO3 VBG O2 Saturation VBG Base Excess Anion Gap 22 H Estim Creat Clear Calc 75.1 Estimated GFR > 60 POC Glucose Random Glucose 369 H* Estimat Average Glucose Hemoglobin A1c % Lactic Acid Lactic Acid F/U @ 2Hr Calcium 8.3 L D Phosphorus 1.3 L Magnesium 1.6 Total Bilirubin AST ALT Alkaline Phosphatase Total Creatine Kinase Total Protein Albumin TSH Urine Color YELLOW Urine Appearance CLEAR Urine pH 5.5 Ur Specific [place] 1.020 Urine Protein TRACE Urine Glucose (UA) 500 H Urine Ketones >=80 Urine Blood NEG Urine Nitrite NEG Ur Leukocyte Esterase NEG Urine Opiates Screen Not Detected Urine Fentanyl Screen Not Detected Ur Barbiturates Screen Not Detected Ur Phencyclidine Scrn Not Detected Ur Amphetamines Screen Not Detected U Benzodiazepines Scrn Not Detected Urine Cocaine Screen Not Detected U Marijuana (THC) Screen Not Detected Ethyl Alcohol Acetone, Qual COVID-19 (MICHAEL) COVID-19 Clin Com 06/25/22 06/25/22 06/25/22 06:38 09:35 10:37 MCV MCH MCHC RDW Plt Count MPV Immature Gran % (Auto) Neut % (Auto) Lymph % (Auto) [place] % (Auto) Eos % (Auto) Baso % (Auto) Lymph # (Auto) [place] # (Auto) Eos # (Auto) Baso # (Auto) Abs Immat Gran (auto) Absolute Neuts (auto) Absolute Nucleated RBC Nucleated RBC % (auto) PT INR APTT VBG pH VBG pCO2 VBG pO2 VBG HCO3 VBG O2 Saturation VBG Base Excess Anion Gap Estim Creat Clear Calc Estimated GFR POC Glucose 233 H 254 H Random Glucose Estimat Average Glucose Hemoglobin A1c % Lactic Acid Lactic Acid F/U @ 2Hr 6.6 H* Calcium Phosphorus Magnesium Total Bilirubin AST ALT Alkaline Phosphatase Total Creatine Kinase Total Protein Albumin TSH Urine Color Urine Appearance Urine pH Ur Specific [place] Urine Protein Urine Glucose (UA) Urine Ketones Urine Blood Urine Nitrite Ur Leukocyte Esterase Urine Opiates Screen Urine Fentanyl Screen Ur Barbiturates Screen Ur Phencyclidine Scrn Ur Amphetamines Screen U Benzodiazepines Scrn Urine Cocaine Screen U Marijuana (THC) Screen Ethyl Alcohol Acetone, Qual COVID-19 (MICHAEL) COVID-19 Clin Com Imaging Radiologist's Impressions: Impressions Chest X-Ray 06/25/22 04:30 IMPRESSION: Unremarkable examination. Head CT 06/25/22 04:56 IMPRESSION: No acute intracranial pathology.
[2022-06-25 12:38] LABS: Glucose, Whole Blood 143 mg/dL (60-115)
[2022-06-25 13:54] LABS: Glucose, Whole Blood 76 mg/dL (60-115)
[2022-06-25 14:53] LABS: Glucose, Whole Blood 143 mg/dL (60-115)
[2022-06-25 15:37] LABS: Hemoglobin 13.1 g/dl (14.0-18.0); Mean Corpuscular Volume 83.6 fL (80.0-98.0); Red Cell Distribution Width 11.4 % (11.0-16.0)
[2022-06-25 16:05] LABS: Anion Gap 15 (12-20); Blood Urea Nitrogen 6 mg/dL (9-16); Calcium 8.6 mg/dL (8.4-10.2); Carbon Dioxide 22 mmol/L (22-29); Chloride 106 mmol/L (96-108); Creatinine Clr Calc Pharmacy 108.6; Estimated Glomerular Filt Rate > 60; Glucose Random 140 mg/dL (60-115); Magnesium 2.1 mg/dL (1.6-2.6); Phosphorus 2.7 mg/dL (2.7-4.5); Potassium 3.5 mmol/L (3.3-5.1); Sodium 139 mmol/L (135-145)
[2022-06-25 16:06] LABS: Hematocrit 36.8 % (42.0-52.0); Mean Corpuscular HGB Conc 35.6 g/dl (31.0-36.0); Mean Corpuscular Hemoglobin 29.8 pg (27.0-33.0); Mean Platelet Volume 9.8 fL (9.4-12.4); Platelet Count 258 X10*3/uL (160-400); White Blood Count 16.3 X10*3/uL (4.8-10.8)
--- NOTE | 2022-06-25 16:07 | MHC.CM.PN ---
PATIENT COMPLETED HCP NAMING HIS [facility] AND [facility]. COPY PLACED IN PATIENT'S CHART. ORIGINAL AND TWO COPIES GIVEN TO PATIENT
[2022-06-25] MEDS: Insulin Lispro 100 UNIT/ML 3 ML VIAL SUBCUT ×2 (16:17→21:24)
--- NOTE | 2022-06-25 16:59 | PM.CCPN ---
Subjective Subjective Date of Service: 06/25/22 Interval History: 31 yo M with DKA. Treated in the usual fashion. Labs are now normalized. Stable for transfer to med-surg. I signed out to Dr. Matta. Critical Care Time (minutes): 0 Physical Exam Vital Signs: Vital Signs: Last Vital Signs Temp 98.5 F 06/25/22 16:00 Pulse 92 06/25/22 16:00 Resp 20 06/25/22 16:00 BP 94/57 L 06/25/22 16:00 Pulse Ox 97 06/25/22 16:00 O2 Del Method 06/25/22 16:00 BMI result Body Mass Index 24.0 Objective Data Labs CBC & Chem 7: 06/25/22 15:03 06/25/22 15:03 Labs: Laboratory Results - last 24 hr 06/25/22 06/25/22 06/25/22 04:03 04:15 04:18 WBC RBC Hgb Hct MCV MCH MCHC RDW Plt Count MPV Immature Gran % (Auto) Neut % (Auto) Lymph % (Auto) [place] % (Auto) Eos % (Auto) Baso % (Auto) Lymph # (Auto) [place] # (Auto) Eos # (Auto) Baso # (Auto) Abs Immat Gran (auto) Absolute Neuts (auto) Absolute Nucleated RBC Nucleated RBC % (auto) PT INR APTT VBG pH VBG pCO2 VBG pO2 VBG HCO3 VBG O2 Saturation VBG Base Excess Sodium 140 Potassium 3.5 Chloride 96 Carbon Dioxide 16 L Anion Gap 32 H BUN 10 Creatinine 1.68 H Estim Creat Clear Calc 52.3 Estimated GFR 47 POC Glucose 496 H* 526 H* Random Glucose 569 H* Estimat Average Glucose Hemoglobin A1c % Lactic Acid Lactic Acid F/U @ 2Hr Calcium 10.2 Phosphorus 4.7 H Magnesium 2.0 Total Bilirubin 0.8 AST 59 H ALT 72 H Alkaline Phosphatase 75 Total Creatine Kinase 86 Troponin I High Sens Total Protein 8.7 H Albumin 5.1 H TSH Urine Color Urine Appearance Urine pH Ur Specific [place] Urine Protein Urine Glucose (UA) Urine Ketones Urine Blood Urine Nitrite Ur Leukocyte Esterase Urine Opiates Screen Urine Fentanyl Screen Ur Barbiturates Screen Ur Phencyclidine Scrn Ur Amphetamines Screen U Benzodiazepines Scrn Urine Cocaine Screen U Marijuana (THC) Screen Ethyl Alcohol Acetone, Qual COVID-19 (MICHAEL) COVID-19 Clin Com 08/07/22 08/07/22 08/07/22 04:18 04:18 04:18 WBC 16.7 H RBC 5.68 Hgb 16.6 Hct 48.2 MCV 84.9 MCH 29.2 MCHC 34.4 RDW 11.4 Plt Count 335 MPV 9.9 Immature Gran % (Auto) 0.8 H Neut % (Auto) 86.5 H Lymph % (Auto) 8.8 L [place] % (Auto) 3.5 Eos % (Auto) 0.0 Baso % (Auto) 0.4 Lymph # (Auto) 1.5 [place] # (Auto) 0.6 Eos # (Auto) 0.0 Baso # (Auto) 0.1 Abs Immat Gran (auto) 0.14 H Absolute Neuts (auto) 14.4 H Absolute Nucleated RBC 0.000 Nucleated RBC % (auto) 0.0 PT 11.0 INR 1.0 APTT 32.0 VBG pH VBG pCO2 VBG pO2 VBG HCO3 VBG O2 Saturation VBG Base Excess Sodium Potassium Chloride Carbon Dioxide Anion Gap BUN Creatinine Estim Creat Clear Calc Estimated GFR POC Glucose Random Glucose Estimat Average Glucose Hemoglobin A1c % Lactic Acid 9.3 H* Lactic Acid F/U @ 2Hr Calcium Phosphorus Magnesium Total Bilirubin AST ALT Alkaline Phosphatase Total Creatine Kinase Troponin I High Sens Total Protein Albumin TSH Urine Color Urine Appearance Urine pH Ur Specific [place] Urine Protein Urine Glucose (UA) Urine Ketones Urine Blood Urine Nitrite Ur Leukocyte Esterase Urine Opiates Screen Urine Fentanyl Screen Ur Barbiturates Screen Ur Phencyclidine Scrn Ur Amphetamines Screen U Benzodiazepines Scrn Urine Cocaine Screen U Marijuana (THC) Screen Ethyl Alcohol Acetone, Qual COVID-19 (MICHAEL) COVID-19 Clin Com 06/25/22 06/25/22 06/25/22 04:18 04:18 04:18 WBC RBC Hgb Hct MCV MCH MCHC RDW Plt Count MPV Immature Gran % (Auto) Neut % (Auto) Lymph % (Auto) [place] % (Auto) Eos % (Auto) Baso % (Auto) Lymph # (Auto) [place] # (Auto) Eos # (Auto) Baso # (Auto) Abs Immat Gran (auto) Absolute Neuts (auto) Absolute Nucleated RBC Nucleated RBC % (auto) PT INR APTT VBG pH VBG pCO2 VBG pO2 VBG HCO3 VBG O2 Saturation VBG Base Excess Sodium Potassium Chloride Carbon Dioxide Anion Gap BUN Creatinine Estim Creat Clear Calc Estimated GFR POC Glucose Random Glucose Estimat Average Glucose Hemoglobin A1c % Lactic Acid Lactic Acid F/U @ 2Hr Calcium Phosphorus Magnesium Total Bilirubin AST ALT Alkaline Phosphatase Total Creatine Kinase Troponin I High Sens < 3.5 Total Protein Albumin TSH 0.49 Urine Color Urine Appearance Urine pH Ur Specific [place] Urine Protein Urine Glucose (UA) Urine Ketones Urine Blood Urine Nitrite Ur Leukocyte Esterase Urine Opiates Screen Urine Fentanyl Screen Ur Barbiturates Screen Ur Phencyclidine Scrn Ur Amphetamines Screen U Benzodiazepines Scrn Urine Cocaine Screen U Marijuana (THC) Screen Ethyl Alcohol < 10 Acetone, Qual Small H COVID-19 (MICHAEL) [employer] 06/25/22 06/25/22 06/25/22 04:18 04:23 05:27 WBC RBC Hgb Hct MCV MCH MCHC RDW Plt Count MPV Immature Gran % (Auto) Neut % (Auto) Lymph % (Auto) [place] % (Auto) Eos % (Auto) Baso % (Auto) Lymph # (Auto) [place] # (Auto) Eos # (Auto) Baso # (Auto) Abs Immat Gran (auto) Absolute Neuts (auto) Absolute Nucleated RBC Nucleated RBC % (auto) PT INR APTT VBG pH VBG pCO2 VBG pO2 VBG HCO3 VBG O2 Saturation VBG Base Excess Sodium Potassium Chloride Carbon Dioxide Anion Gap BUN Creatinine Estim Creat Clear Calc Estimated GFR POC Glucose 416 H* Random Glucose Estimat Average Glucose TNP Hemoglobin A1c % > 14.0 Lactic Acid Lactic Acid F/U @ 2Hr Calcium Phosphorus Magnesium Total Bilirubin AST ALT Alkaline Phosphatase Total Creatine Kinase Troponin I High Sens Total Protein Albumin TSH Urine Color Urine Appearance Urine pH Ur Specific [place] Urine Protein Urine Glucose (UA) Urine Ketones Urine Blood Urine Nitrite Ur Leukocyte Esterase Urine Opiates Screen Urine Fentanyl Screen Ur Barbiturates Screen Ur Phencyclidine Scrn Ur Amphetamines Screen U Benzodiazepines Scrn Urine Cocaine Screen U Marijuana (THC) Screen Ethyl Alcohol Acetone, Qual COVID-19 (MICHAEL) Negative [employer] See Note 06/25/22 06/25/22 06/25/22 05:31 05:45 05:45 WBC RBC Hgb Hct MCV MCH MCHC RDW Plt Count MPV Immature Gran % (Auto) Neut % (Auto) Lymph % (Auto) [place] % (Auto) Eos % (Auto) Baso % (Auto) Lymph # (Auto) [place] # (Auto) Eos # (Auto) Baso # (Auto) Abs Immat Gran (auto) Absolute Neuts (auto) Absolute Nucleated RBC Nucleated RBC % (auto) PT INR APTT VBG pH 7.25 L VBG pCO2 30 VBG pO2 69 VBG HCO3 13 L VBG O2 Saturation 89.0 VBG Base Excess -11.8 Sodium Potassium Chloride Carbon Dioxide Anion Gap BUN Creatinine Estim Creat Clear Calc Estimated GFR POC Glucose Random Glucose Estimat Average Glucose Hemoglobin A1c % Lactic Acid Lactic Acid F/U @ 2Hr Calcium Phosphorus Magnesium Total Bilirubin AST ALT Alkaline Phosphatase Total Creatine Kinase Troponin I High Sens Total Protein Albumin TSH Urine Color YELLOW Urine Appearance CLEAR Urine pH 5.5 Ur Specific [place] 1.020 Urine Protein TRACE Urine Glucose (UA) 500 H Urine Ketones >=80 Urine Blood NEG Urine Nitrite NEG Ur Leukocyte Esterase NEG Urine Opiates Screen Not Detected Urine Fentanyl Screen Not Detected Ur Barbiturates Screen Not Detected Ur Phencyclidine Scrn Not Detected Ur Amphetamines Screen Not Detected U Benzodiazepines Scrn Not Detected Urine Cocaine Screen Not Detected U Marijuana (THC) Screen Not Detected Ethyl Alcohol Acetone, Qual COVID-19 (MICHAEL) COVID-19 Clin Com 06/25/22 06/25/22 06/25/22 06:38 06:38 09:35 WBC RBC Hgb Hct MCV MCH MCHC RDW Plt Count MPV Immature Gran % (Auto) Neut % (Auto) Lymph % (Auto) [place] % (Auto) Eos % (Auto) Baso % (Auto) Lymph # (Auto) [place] # (Auto) Eos # (Auto) Baso # (Auto) Abs Immat Gran (auto) Absolute Neuts (auto) Absolute Nucleated RBC Nucleated RBC % (auto) PT INR APTT VBG pH VBG pCO2 VBG pO2 VBG HCO3 VBG O2 Saturation VBG Base Excess Sodium 136 Potassium 3.7 Chloride 105 Carbon Dioxide 13 L Anion Gap 22 H BUN 9 Creatinine 1.17 Estim Creat Clear Calc 75.1 Estimated GFR > 60 POC Glucose 233 H Random Glucose 369 H* Estimat Average Glucose Hemoglobin A1c % Lactic Acid Lactic Acid F/U @ 2Hr 6.6 H* Calcium 8.3 L D Phosphorus 1.3 L Magnesium 1.6 Total Bilirubin AST ALT Alkaline Phosphatase Total Creatine Kinase Troponin I High Sens Total Protein Albumin TSH Urine Color Urine Appearance Urine pH Ur Specific [place] Urine Protein Urine Glucose (UA) Urine Ketones Urine Blood Urine Nitrite Ur Leukocyte Esterase Urine Opiates Screen Urine Fentanyl Screen Ur Barbiturates Screen Ur Phencyclidine Scrn Ur Amphetamines Screen U Benzodiazepines Scrn Urine Cocaine Screen U Marijuana (THC) Screen Ethyl Alcohol Acetone, Qual COVID-19 (MICHAEL) COVID-19 Clin Com 06/25/22 06/25/22 06/25/22 10:37 12:35 13:52 WBC RBC Hgb Hct MCV MCH MCHC RDW Plt Count MPV Immature Gran % (Auto) Neut % (Auto) Lymph % (Auto) [place] % (Auto) Eos % (Auto) Baso % (Auto) Lymph # (Auto) [place] # (Auto) Eos # (Auto) Baso # (Auto) Abs Immat Gran (auto) Absolute Neuts (auto) Absolute Nucleated RBC Nucleated RBC % (auto) PT INR APTT VBG pH VBG pCO2 VBG pO2 VBG HCO3 VBG O2 Saturation VBG Base Excess Sodium Potassium Chloride Carbon Dioxide Anion Gap BUN Creatinine Estim Creat Clear Calc Estimated GFR POC Glucose 254 H 143 H 76 Random Glucose Estimat Average Glucose Hemoglobin A1c % Lactic Acid Lactic Acid F/U @ 2Hr Calcium Phosphorus Magnesium Total Bilirubin AST ALT Alkaline Phosphatase Total Creatine Kinase Troponin I High Sens Total Protein Albumin TSH Urine Color Urine Appearance Urine pH Ur Specific [place] Urine Protein Urine Glucose (UA) Urine Ketones Urine Blood Urine Nitrite Ur Leukocyte Esterase Urine Opiates Screen Urine Fentanyl Screen Ur Barbiturates Screen Ur Phencyclidine Scrn Ur Amphetamines Screen U Benzodiazepines Scrn Urine Cocaine Screen U Marijuana (THC) Screen Ethyl Alcohol Acetone, Qual COVID-19 (MICHAEL) COVID-19 Clin Com 06/25/22 06/25/22 06/25/22 14:50 15:03 15:03 WBC 16.3 H RBC 4.40 L D Hgb 13.1 L D Hct 36.8 L D MCV 83.6 MCH 29.8 MCHC 35.6 RDW 11.4 Plt Count 258 MPV 9.8 Immature Gran % (Auto) Neut % (Auto) Lymph % (Auto) [place] % (Auto) Eos % (Auto) Baso % (Auto) Lymph # (Auto) [place] # (Auto) Eos # (Auto) Baso # (Auto) Abs Immat Gran (auto) Absolute Neuts (auto) Absolute Nucleated RBC 0.000 Nucleated RBC % (auto) 0.0 PT INR APTT VBG pH VBG pCO2 VBG pO2 VBG HCO3 VBG O2 Saturation VBG Base Excess Sodium 139 Potassium 3.5 Chloride 106 Carbon Dioxide 22 Anion Gap 15 BUN 6 L Creatinine 0.81 Estim Creat Clear Calc 108.6 Estimated GFR > 60 POC Glucose 143 H Random Glucose 140 H D Estimat Average Glucose Hemoglobin A1c % Lactic Acid Lactic Acid F/U @ 2Hr Calcium 8.6 Phosphorus 2.7 Magnesium 2.1 Total Bilirubin AST ALT Alkaline Phosphatase Total Creatine Kinase Troponin I High Sens Total Protein Albumin TSH Urine Color Urine Appearance Urine pH Ur Specific [place] Urine Protein Urine Glucose (UA) Urine Ketones Urine Blood Urine Nitrite Ur Leukocyte Esterase Urine Opiates Screen Urine Fentanyl Screen Ur Barbiturates Screen Ur Phencyclidine Scrn Ur Amphetamines Screen U Benzodiazepines Scrn Urine Cocaine Screen U Marijuana (THC) Screen Ethyl Alcohol Acetone, Qual COVID-19 (MICHAEL) COVID-19 Clin Com Quality Stroke Does the patient have a stroke diagnosis?: No VTE Prior VTE?: No VTE Risk Level:: Medical - low VTE Device Contraindication: Treatment Not Indicated VTE Drug Contraindication: Treatment Not Indicated
[2022-06-25 17:50] LABS: Glucose, Whole Blood 216 mg/dL (60-115)
[2022-06-25 21:05] LABS: Glucose, Whole Blood 236 mg/dL (60-115)
[2022-06-25] MEDS: Insulin Glargine,Hum.rec.anlog 100 UNIT/ML 10 ML VIAL 15 UNIT SUBCUT (21:24)
[2022-06-26] VITALS (7 sets, daily range): BP systolic 119–136; BP diastolic 69–93; PULSE 85–116; RESP 15–23; TEMP 36.2–36.9; O2SAT 94–97
[2022-06-26 08:05] LABS: MANUAL DIFF FLAG NO
[2022-06-26 08:09] LABS: Basophils Percent Auto 0.2 % (0-2); Eosinophils Absolute Auto 0.1 X10*3/uL (0.0-0.4); Eosinophils Percent Auto 0.4 % (0-4); Hematocrit 40.5 % (42.0-52.0); Hemoglobin 14.1 g/dl (14.0-18.0); Imm Gran Abs Auto 0.05 X10*3/uL (0.00-0.03); Imm Gran Pct Auto 0.4 % (0.0-0.4); Lymphocytes Absolute Auto 4.5 X10*3/uL (1.2-4.9); Lymphocytes Percent Auto 38.7 % (20-40); Mean Corpuscular HGB Conc 34.8 g/dl (31.0-36.0); Mean Corpuscular Hemoglobin 29.7 pg (27.0-33.0); Mean Corpuscular Volume 85.4 fL (80.0-98.0); Mean Platelet Volume 11.6 fL (9.4-12.4); Monocytes Absolute Auto 0.7 X10*3/uL (0.1-1.2); Monocytes Percent Auto 5.6 % (2-11); Neutrophils Absolute Auto 6.3 x10*3/uL (2.0-8.3); Neutrophils Percent Auto 54.7 % (45-73); Platelet Count 159 X10*3/uL (160-400); Red Blood Count 4.74 X10*6/uL (4.60-5.80); Red Cell Distribution Width 11.5 % (11.0-16.0); White Blood Count 11.6 X10*3/uL (4.8-10.8)
[2022-06-26 08:24] LABS: Anion Gap 17 (12-20); Blood Urea Nitrogen 6 mg/dL (9-16); Carbon Dioxide 20 mmol/L (22-29); Chloride 105 mmol/L (96-108); Creatinine Clr Calc Pharmacy 108.6; Estimated Glomerular Filt Rate > 60; Glucose Fasting 201 mg/dL (60-99); Potassium 4.2 mmol/L (3.3-5.1); Sodium 138 mmol/L (135-145)
[2022-06-26] MEDS: Insulin Lispro 100 UNIT/ML 3 ML VIAL SUBCUT ×4 (09:19→21:58)
--- NOTE | 2022-06-26 10:06 | MHC.CM.PN ---
Met with pt and his finance to review d/c planning. Pt is independent with all care needs: works, has no barriers to care. Pt defers most of the questions to his fiance, Gerri. Gerri states pt does not have a PCP and will need [facility]. Pt has active [employer] through his employer but states he will not be able to afford injectable insulin or testing supplies with his present insurer. Instructed pt to start the [facility] ana on line but fill any scripts at d/c using existing [facility]. Referred pt and Gerri to member service number on [facility] card to assist with PCP. Gerri to transport pt home. No services anticipated, Gerri states she is a [employer] and can assist pt as needed. VAX x3, HCP completed and in chart.
--- NOTE | 2022-06-26 10:38 | P.PNIM_ITS ---
Subjective Subjective Date of Service: 06/26/22 Interval History: No nausea, vomiting, or abd pain. He was diagnosed with prediabetes as a teenager when he weighed 230lb+. He got his weight down to 140lb with diet. He has no PCP. Review of Systems Review of Systems: Yes all other systems are reviewed and are negative Physical Exam Vital Signs: Vital Signs: Last Vital Signs Temp 98.2 F 06/26/22 08:00 Pulse 106 H 06/26/22 08:00 Resp 16 06/26/22 08:00 BP 119/69 06/26/22 08:00 Pulse Ox 96 06/26/22 08:00 O2 Del Method 06/26/22 08:00 BMI result Body Mass Index 24.0 Gen: in no acute distress HEENT: sclera anicteric, moist mucus membranes Neck: supple Lungs: clear to auscultation bilaterally Heart: regular rate and rhythm, no murmurs Abd: soft, non-tender, non-distended Ext: no edema Skin: warm/well-perfused Neuro: alert and oriented x3, no focal findings Psych: appropriate affect Objective Data Active Medications Dextrose (Dextrose 50 % 25 Gm/50 Ml Syringe) 25 gm IVPUSH Q15M PRN; Protocol PRN Reason: per Hypoglycemia Standing Ord. Glucose (Glucose Gel 15 Gm Gel..Gram.) 15 gm PO Q15M PRN; Protocol PRN Reason: per Hypoglycemia Standing Ord. Insulin Glargine (Insulin Glargine,Hum.Rec.Anlog 100 Unit/Ml 10 Ml Vial) 15 unit SUBCUT BEDTIME [facility] Last Admin: 06/25/22 21:24 Dose: 15 unit Documented By: HALLIE Insulin Human Lispro (Insulin Lispro 100 Unit/Ml 3 Ml Vial) 0 unit SUBCUT QIDACHS [facility]; Protocol Last Admin: 06/26/22 09:19 Dose: 6 unit Documented By: KANNAN Labs CBC & Chem 7: 06/26/22 06:59 06/26/22 06:59 Labs: Laboratory Results - last 24 hr 06/25/22 06/25/22 06/25/22 10:37 12:35 13:52 MCV MCH MCHC RDW Plt Count MPV Immature Gran % (Auto) Neut % (Auto) Lymph % (Auto) Haines % (Auto) Eos % (Auto) Baso % (Auto) Lymph # (Auto) Haines # (Auto) Eos # (Auto) Baso # (Auto) Abs Immat Gran (auto) Absolute Neuts (auto) Absolute Nucleated RBC Nucleated RBC % (auto) Anion Gap Estim Creat Clear Calc Estimated GFR POC Glucose 254 H 143 H 76 Random Glucose Fasting Glucose Calcium Phosphorus Magnesium 06/25/22 06/25/22 06/25/22 14:50 15:03 15:03 MCV 83.6 MCH 29.8 MCHC 35.6 RDW 11.4 Plt Count 258 MPV 9.8 Immature Gran % (Auto) Neut % (Auto) Lymph % (Auto) Haines % (Auto) Eos % (Auto) Baso % (Auto) Lymph # (Auto) Haines # (Auto) Eos # (Auto) Baso # (Auto) Abs Immat Gran (auto) Absolute Neuts (auto) Absolute Nucleated RBC 0.000 Nucleated RBC % (auto) 0.0 Anion Gap 15 Estim Creat Clear Calc 108.6 Estimated GFR > 60 POC Glucose 143 H Random Glucose 140 H D Fasting Glucose Calcium 8.6 Phosphorus 2.7 Magnesium 2.1 06/25/22 06/25/22 06/26/22 17:12 21:01 06:59 MCV MCH MCHC RDW Plt Count MPV Immature Gran % (Auto) Neut % (Auto) Lymph % (Auto) Haines % (Auto) Eos % (Auto) Baso % (Auto) Lymph # (Auto) Haines # (Auto) Eos # (Auto) Baso # (Auto) Abs Immat Gran (auto) Absolute Neuts (auto) Absolute Nucleated RBC Nucleated RBC % (auto) Anion Gap 17 Estim Creat Clear Calc 108.6 Estimated GFR > 60 POC Glucose 216 H 236 H Random Glucose Fasting Glucose 201 H Calcium 9.0 Phosphorus Magnesium 06/26/22 06:59 MCV 85.4 MCH 29.7 MCHC 34.8 RDW 11.5 Plt Count 159 L D MPV 11.6 Immature Gran % (Auto) 0.4 Neut % (Auto) 54.7 Lymph % (Auto) 38.7 Haines % (Auto) 5.6 Eos % (Auto) 0.4 Baso % (Auto) 0.2 Lymph # (Auto) 4.5 Haines # (Auto) 0.7 Eos # (Auto) 0.1 Baso # (Auto) 0.0 Abs Immat Gran (auto) 0.05 H Absolute Neuts (auto) 6.3 Absolute Nucleated RBC 0.000 Nucleated RBC % (auto) 0.0 Anion Gap Estim Creat Clear Calc Estimated GFR POC Glucose Random Glucose Fasting Glucose Calcium Phosphorus Magnesium Microbiology Microbiology Results: Microbiology 06/25/22 04:18 Blood Culture - Preliminary Blood - Venous No growth after 24 hours. 06/25/22 04:18 Blood Culture - Preliminary Blood - Venous No growth after 24 hours. Assessment and Plan (1) Diabetic ketoacidosis: Status: Acute [facility] d#3 31yo M with hx of prediabetes presenting with AMS + weakness, polyuria + polydipsia, and weight loss, admitted to ICU for DKA, stepped down to hospitalist service overnight # DKA - gap closed, transitioned to basal/bolus insulin, monitor to ensure gap does not re-open # DM - likely DM1 given DKA presentation, which is especially unfortunate as he appeared to have reversed his insulin resistance/prediabetes through dietary measures. SQ insulin as above, DM teaching, will need glucometer + supplies/insulin pen + needles upon d/c, plus Endocrine referral. will send type 1 DM autoantibodies. # BLANKA # hypoK # lactic acidosis # metabolic encephalopathy - resolved after IV fluids + PO repletion in the ICU # VTE ppx - early ambulation In my clinical judgment, the patient requires continued hospitalization for the following reasons: DKA, ICU downgrade Quality Stroke Does the patient have a stroke diagnosis?: No VTE Prior VTE?: No VTE Risk Level:: Medical - low VTE Device Contraindication: Treatment Not Indicated VTE Drug Contraindication: Treatment Not Indicated
[2022-06-26 11:51] LABS: Glucose, Whole Blood 292 mg/dL (60-115)
[2022-06-26 16:40] LABS: Glucose, Whole Blood 297 mg/dL (60-115)
[2022-06-26 20:17] LABS: Glucose, Whole Blood 174 mg/dL (60-115)
[2022-06-26] MEDS: Acetaminophen 325 MG TABLET 650 MG PO (21:56)
[2022-06-26] MEDS: Insulin Glargine,Hum.rec.anlog 100 UNIT/ML 10 ML VIAL 15 UNIT SUBCUT (21:57)
[2022-06-27 03:49] VITALS: BP 127/91; PULSE 82; RESP 16; O2SAT 96
[2022-06-27 06:17] LABS: Anion Gap 16 (12-20); Blood Urea Nitrogen 13 mg/dL (9-16); Calcium 9.5 mg/dL (8.4-10.2); Carbon Dioxide 24 mmol/L (22-29); Chloride 102 mmol/L (96-108); Creatinine Clr Calc Pharmacy 101.1; Estimated Glomerular Filt Rate > 60; Glucose Random 172 mg/dL (60-115); Potassium 3.9 mmol/L (3.3-5.1); Sodium 138 mmol/L (135-145)
[2022-06-27 07:20] LABS: Glucose, Whole Blood 158 mg/dL (60-115)
[2022-06-27 08:00] VITALS: BP 128/89; PULSE 99; RESP 19; TEMP 36.6; O2SAT 97
[2022-06-27] MEDS: Insulin Lispro 100 UNIT/ML 3 ML VIAL SUBCUT ×2 (08:45→12:30)
[2022-06-27 11:42] LABS: Glucose, Whole Blood 244 mg/dL (60-115)
--- NOTE | 2022-06-27 11:49 | MHC.CM.PN ---
Pt has [facility] which is managed by [facility] who is now part of [facility]. Diabetic supplies and meds per [employer] formulary given to MD for d/c scripts. Pt understands he needs to contact [facility] to locate an in network MD who is accepting new patients.
--- NOTE | 2022-06-27 12:09 | PM.DS ---
DS: Providers Provider Date of Service: 06/27/22 Date of admission: 06/25/22 08:00 Date of discharge: 06/27/22 Primary care physician: Unknown Physician DS: Diagnosis Discharge Diagnosis (1) Diabetic ketoacidosis: Status: Acute (2) Type 1 diabetes: Status: Acute (3) Acute kidney failure: Status: Acute (4) Hypophosphatasia: Status: Acute (5) Hypophosphatemia: Status: Acute (6) Lactic acidosis: Status: Acute (7) Metabolic encephalopathy: Status: Acute DS: Summary Hospital Course Hospital Course: from admission history and physical by international trade manager Jhonny Toro, 06/25/22: Mr. Matthews is admitted to the ICU this morning w DKA. The patient is a 31 yo M male new to [facility] w PMHx of diabetes for many years, not taking any medications. The patient was brought ambulatory to the ED this morning by his fianc?e for evaluation of altered mental status and weakness.? Over the past week has had polyuria and polydipsia.? Lost 20 lb of weight over the last period of time. ?Not acting right since yesterday and had multiple episodes of vomiting and became very weak, so she brought him to the ED this morning..? He was too weak to walk from the car to the emergency department and he was wheeled into triage.? At triage he was lethargic and brought back into the emergency department.? He is COVID vaccinated x3. In the ED, the patient was lethargic but oriented, able to answer questions.? He was afebrile.? Heart rate was 90s, blood pressure 94/60, respiratory rate 14, sat 99% on room air.? General physical exam was unremarkable. Labs in the ED were notable for white count of 16, hemoglobin of 16, glucose 569, BUN/creatinine 10/1.6, sodium 140, potassium 3.5, bicarb 16, anion gap 32, phosphorus 4.7, mild transaminase elevation, and an albumin of 5.1. The patient was started on IV fluids and insulin.? Follow-up chemistries two hours later showed a decrease in his bicarb to 13, a decrease in an anion gap to 22, and a glucose of 369.? The patient was admitted to the ICU. On arrival here, the point of care was 233, with insulin going at 3 units an hour.? The patient looks entirely well.? Heart rate is 108, blood pressure 122/62, respiratory rate is about 20, and sat is 96% on room air.? He is afebrile.? Fully alert and oriented.? No jugular venous distention with the head of bed at about 40 degrees.? Chest clear to auscultation, with normal expiratory phase.? Heart rate and rhythm regular, with normal-sounding S1 and S2, with no murmur or gallops.? Abdomen is benign.? He has no peripheral edema. LABORATORY DATA:? Hemoglobin A1c is > 14. This 31yo M with a history of prediabetes as an adolescent that resolved after losing close to 90 lb through diet, presented now at the age of [age] years old with altered mental status + weakness, polyuria + polydipsia, and weight loss. He was admitted to ICU for DKA and managed there with subcutaneous insulin. Anion gap and acidosis resolved, so he was stepped down to the hospitalist service. BLANKA, hypophosphatemia, lactic acidosis, and metabolic encephalopathy resolved after IV fluid repletion and resolution fo the acidosis. He likely has new-onset type 1 diabetes; autoimmune antibodies were sent and are pending at the time of discharge. He was dischaged on basal/bolus insulin [15 units of detemir at night and 5 units of lispro with each meal] with pen needles and glucometer with supplies. He will establish Primary Care and seek Endocrinology referral as soon as possible. Status at Discharge Functional status at discharge: independent ambulation Time Spent with Patient Time attestation: Total time spent providing and/or coordinating discharge services: Discharge coordination time: Greater than 30 minutes Quality: Safe Use of Opioids Does Pt have an Active Cancer Diagnosis on the Problem List?: No Quality: Stroke Does the patient have a stroke diagnosis?: No Physical Exam Vital Signs: Vital Signs: Last Vital Signs Temp 97.8 F 06/27/22 08:00 Pulse 99 06/27/22 08:00 Resp 19 06/27/22 08:00 BP 128/89 06/27/22 08:00 Pulse Ox 97 06/27/22 08:00 O2 Del Method 06/27/22 08:00 BMI result Body Mass Index 24.0 Gen: in no acute distress HEENT: sclera anicteric, moist mucus membranes Neck: supple Lungs: clear to auscultation bilaterally Heart: regular rate and rhythm, no murmurs Abd: soft, non-tender, non-distended Ext: no edema Skin: warm/well-perfused Neuro: alert and oriented x3, no focal findings Psych: appropriate affect DS: Data Data Completed and Pending Completed studies during hospitalization [Text1]: Laboratory Results WBC 11.6 X10*3/uL (4.8-10.8) H 06/26/22 06:59 RBC 4.74 X10*6/uL (4.60-5.80) 06/26/22 06:59 Hgb 14.1 g/dl (14.0-18.0) 06/26/22 06:59 Hct 40.5 % (42.0-52.0) L 06/26/22 06:59 MCV 85.4 fL (80.0-98.0) 06/26/22 06:59 MCH 29.7 pg (27.0-33.0) 06/26/22 06:59 MCHC 34.8 g/dl (31.0-36.0) 06/26/22 06:59 RDW 11.5 % (11.0-16.0) 06/26/22 06:59 Plt Count 159 X10*3/uL (160-400) L D 06/26/22 06:59 MPV 11.6 fL (9.4-12.4) 06/26/22 06:59 Immature Gran % (Auto) 0.4 % (0.0-0.4) 06/26/22 06:59 Neut % (Auto) 54.7 % (45-73) 06/26/22 06:59 Lymph % (Auto) 38.7 % (20-40) 06/26/22 06:59 [place] % (Auto) 5.6 % (2-11) 06/26/22 06:59 Eos % (Auto) 0.4 % (0-4) 06/26/22 06:59 Baso % (Auto) 0.2 % (0-2) 06/26/22 06:59 Lymph # (Auto) 4.5 X10*3/uL (1.2-4.9) 06/26/22 06:59 [place] # (Auto) 0.7 X10*3/uL (0.1-1.2) 06/26/22 06:59 Eos # (Auto) 0.1 X10*3/uL (0.0-0.4) 06/26/22 06:59 Baso # (Auto) 0.0 X10*3/uL (0.0-0.2) 06/26/22 06:59 Abs Immat Gran (auto) 0.05 X10*3/uL (0.00-0.03) H 06/26/22 06:59 Absolute Neuts (auto) 6.3 x10*3/uL (2.0-8.3) 06/26/22 06:59 Absolute Nucleated RBC 0.000 X10*3/uL (0.0-0.012) 06/26/22 06:59 Nucleated RBC % (auto) 0.0 /100WBC (0.0-0.2) 06/26/22 06:59 PT 11.0 SEC (10.0-13.1) 06/25/22 04:18 INR 1.0 (0.9-1.1) 06/25/22 04:18 APTT 32.0 SEC (26.0-36.4) 06/25/22 04:18 VBG pH 7.25 (7.32-7.43) L 06/25/22 05:31 VBG pCO2 30 mmHg 06/25/22 05:31 VBG pO2 69 mmHg 06/25/22 05:31 VBG HCO3 13 mmol/L (22-26) L 06/25/22 05:31 VBG O2 Saturation 89.0 % 06/25/22 05:31 VBG Base Excess -11.8 mmol/L 06/25/22 05:31 Sodium 138 mmol/L (135-145) 06/27/22 05:15 Potassium 3.9 mmol/L (3.3-5.1) 06/27/22 05:15 Chloride 102 mmol/L (96-108) 06/27/22 05:15 Carbon Dioxide 24 mmol/L (22-29) 06/27/22 05:15 Anion Gap 16 (12-20) 06/27/22 05:15 BUN 13 mg/dL (9-16) D 06/27/22 05:15 Creatinine 0.87 mg/dL (0.5-1.4) 06/27/22 05:15 Estim Creat Clear Calc 101.1 06/27/22 05:15 Estimated GFR > 60 06/27/22 05:15 POC Glucose 244 mg/dL (60-115) H 06/27/22 11:38 Random Glucose 172 mg/dL (60-115) H 06/27/22 05:15 Fasting Glucose 201 mg/dL (60-99) H 06/26/22 06:59 Estimat Average Glucose TNP 06/25/22 04:18 Hemoglobin A1c % > 14.0 % 06/25/22 04:18 Lactic Acid 9.3 mmol/L (0.5-2.0) H* 06/25/22 04:18 Lactic Acid F/U @ 2Hr 6.6 mmol/L (0.5-2.0) H* 06/25/22 06:38 Calcium 9.5 mg/dL (8.4-10.2) 06/27/22 05:15 Phosphorus 2.7 mg/dL (2.7-4.5) 06/25/22 15:03 Magnesium 2.1 mg/dL (1.6-2.6) 06/25/22 15:03 Total Bilirubin 0.8 mg/dL (0.0-1.0) 06/25/22 04:18 AST 59 U/L (5-37) H 06/25/22 04:18 ALT 72 U/L (0-40) H 06/25/22 04:18 Alkaline Phosphatase 75 U/L (39-117) 06/25/22 04:18 Total Creatine Kinase 86 U/L (38-174) 06/25/22 04:18 Troponin I High Sens < 3.5 ng/L (<3.5-35.0) 06/25/22 04:18 Total Protein 8.7 g/dL (6.5-8.0) H 06/25/22 04:18 Albumin 5.1 g/dL (3.5-5.0) H 06/25/22 04:18 TSH 0.49 uIU/mL (0.32-4.0) 06/25/22 04:18 Urine Color YELLOW 06/25/22 05:45 Urine Appearance CLEAR 06/25/22 05:45 Urine pH 5.5 (5.0-8.0) 06/25/22 05:45 Ur Specific [place] 1.020 (1.005-1.025) 06/25/22 05:45 Urine Protein TRACE MG/DL (NEG-TRACE) 06/25/22 05:45 Urine Glucose (UA) 500 MG/DL (NEG) H 06/25/22 05:45 Urine Ketones >=80 MG/DL (NEG) 06/25/22 05:45 Urine Blood NEG (NEG) 06/25/22 05:45 Urine Nitrite NEG (NEG) 06/25/22 05:45 Ur Leukocyte Esterase NEG (NEG) 06/25/22 05:45 Urine Opiates Screen Not Detected (Not Detect) 06/25/22 05:45 Urine Fentanyl Screen Not Detected (Not Detect) 06/25/22 05:45 Ur Barbiturates Screen Not Detected (Not Detect) 06/25/22 05:45 Ur Phencyclidine Scrn Not Detected (Not Detect) 06/25/22 05:45 Ur Amphetamines Screen Not Detected (Not Detect) 06/25/22 05:45 U Benzodiazepines Scrn Not Detected (Not Detect) 06/25/22 05:45 Urine Cocaine Screen Not Detected (Not Detect) 06/25/22 05:45 U Marijuana (THC) Screen Not Detected (Not Detect) 06/25/22 05:45 Ethyl Alcohol < 10 mg/dL 06/25/22 04:18 Acetone, Qual Small (Negative) H 06/25/22 04:18 COVID-19 (MICHAEL) Negative (Negative) 06/25/22 04:23 COVID-19 Clin Com See Note 06/25/22 04:23 Impressions Chest X-Ray 06/25/22 04:30 IMPRESSION: Unremarkable examination. Head CT 06/25/22 04:56 IMPRESSION: No acute intracranial pathology. Discharge Plan Discharge Patient Disposition: Home, Self-Care Discharge Diagnosis: DKA, likely type 1 diabetes Referrals: Physician,Unknown J [Primary Care Provider] - 1 Week Discharge Medications: New (DME) FreeStyle Lite Strips Strip Qty: 100 1RF Rx Instructions: Test four times a day or as directed. (DME) blood-glucose meter [FreeStyle Lite Meter] Kit Qty: 1 1RF Rx Instructions: As Directed alcohol swabs Pads, Medicated 1 pad TOPICAL QIDACHS Qty: 100 1RF Rx Instructions: Use four times a day or as directed. insulin lispro [Humalog KwikPen Insulin] 100 unit/mL Insulin Pen 5 unit SUBCUT QIDACHS Qty: 15 1RF (DME) pen needle, diabetic 32 gauge x 1/4 Needle Qty: 100 1RF Rx Instructions: Use four times a day or as directed. (DME) lancets [FreeStyle Lancets] 28 gauge Misc Qty: 100 1RF Rx Instructions: Test four times a day or as directed. Levemir FlexTouch U-100 Insuln 100 unit/mL (3 mL) insulin pen 15 unit subcut BEDTIME Qty: 15 1RF Discharge Orders: Discharge Order (Routine); Ordered 06/27/22 Ordered By: Amol Mullins Diet: Diabetic diet Activity on Discharge: As tolerated Stand Alone Forms: Patient Portal Discharge page Care Plan Goals: control blood sugar and avoid complications of diabetes Health Concerns: DKA, resolved new-onset diabetes, likely type 1 Plan of Treatment: diabetic diet: avoid sugars and simple starches check blood sugar in the morning before breakfast (goal: 80-140) and then 2 hours after each meal (goal: 80-200) insulin: take LONG-ACTING Levemir 15 units at bedtime every day; take SHORT-ACTING Humalog 5 units with each meal avoid hypoglycemia. if you feel shaky, sweaty, or faint, check your blood sugar and if it is less than 70, drink 4 ounces of juice and recheck blood sugar in 15 minutes; repeat until blood sugar is >70, then seek medical attention establish Primary Care and obtain Endocrinology referral as soon as possible Assessment: See Discharge Summary Patient Instructions: Diabetic Ketoacidosis (DC), Type 1 Diabetes in Adults: New Diagnosis (DC), What to Do if Your Blood Sugar is Low (DC), Diabetes Type 1: Management (DC)
--- NOTE | 2022-06-27 13:33 | PC.NURSE ---
1330-IV x2 removed for discharge. IV angio intact and pt tolerated well. Discharge instructions reviewed with pt and fiancee. questions answered. medications electronically sent to pharmacy per Dr. Mullins.
--- NOTE | 2022-06-27 13:44 | PC.NURSE ---
1344-pt discharged with fiancee and ICU staff member accompanied. pt belongings with pt, including clothes and cell phone.
[2022-06-29 15:22] LABS: Glutamic acid decarboxylase Ab <5 IU/mL (<5)
[2022-07-05 21:52] LABS: Insulin Auto Antibody <0.4 U/mL (<0.4)
[2022-07-10 23:56] LABS: Islet Cell Antibody Screen NEGATIVE (NEGATIVE)
== END 2022-06-27 13:44 | disposition home or self-care (01) | DRG 637 ==
LOC: HO.ED 07:42 → HO.EDOVER 08:09 → HO.ICU 09:05 → HO.IMC 06-27 10:37 → HO.ICU 06-27 11:32
PROVIDERS: Hospitalist; Internal Medicine; Admitting Provider Anesthesiology; Emergency Provider Emergency Medicine Emergency Medical Services; Visit Provider Family Medicine
DX: E10.10 Type 1 diabetes mellitus with ketoacidosis without coma (principal); G93.41 Metabolic encephalopathy; N17.9 Acute kidney failure, unspecified; E83.39 Other disorders of phosphorus metabolism; E87.6 Hypokalemia; Z20.822 Contact with and (suspected) exposure to COVID-19
CPT/HCPCS: 36415; 70450; 71045; 80048; 80053; 80307; 81003; 82009; 82077; 82550; 82803; 82947; 83036; 83605; 83735; 84100; 84443; 84484; 85025; 85027; 85610; 85730; 86255; 86337; 86341; 87040; 87635; 93005; 99285; J2543; J3475

== ENCOUNTER 2023-01-22 15:10 | Emergency (ER) | payer OTHER, SELFPAY ==
[2023-01-22 16:17] VITALS: BP 153/98; PULSE 101; RESP 20; TEMP 36.9; O2SAT 98; BMI 28.1
--- NOTE | 2023-01-22 16:18 | ED.DENTAL ---
HPI - Dental/Oral General Chief complaint: Dental/Oral Stated complaint: dental Time Seen by Provider: 01/22/23 16:20 Source: patient Mode of arrival: ambulatory Limitations: no limitations History of Present Illness HPI Narrative: 32 yo male with history of DM1 presents to the ER for evaluation of dental pain after he had 7 right upper teeth removed on 01/18 at [facility]. He was discharged with Amoxicillin and Ibuprofen 800 mg. He had a partial denture made and placed at the time of extraction and was told not to take it out for a week. Patient reports waxing/waning right upper mandible swelling with significant ongoing pain. He has a follow up appointment tomorrow. MD Complaint: tooth pain Onset (ago): day(s) (5) Duration: constant Severity: severe Severity scale (1-10): 10 Relieving factors: nothing Exacerbating factors: nothing Context: poor dental care Associated symptoms: gum swelling Treatment prior to arrival: none Related Data Previous Rx's Medication Instructions Recorded alcohol swabs 1 pad topical QIDACHS #100 ea 06/27/22 blood sugar diagnostic (FreeStyle #100 ea 06/27/22 Lite Strips) blood-glucose meter (FreeStyle #1 ea 06/27/22 Lite Meter kit) insulin aspart U-100 100 unit/mL 5 unit (0.05 mL) subcut TID #15 mL 06/27/22 (3 mL) subcutaneous pen (Novolog FlexPen U-100 Insulin aspart) insulin detemir U-100 100 unit/mL 15 unit (0.15 mL) subcut BEDTIME 06/27/22 (3 mL) subcutaneous pen (Levemir #15 mL FlexTouch U-100 Insulin) lancets 28 gauge (FreeStyle #100 ea 06/27/22 Lancets) pen needle, diabetic 32 gauge x #100 ea 06/27/22 1/4 acetaminophen 500 mg tablet 1,000 mg PO Q6H PRN fever or pain 01/22/23 (Tylenol Extra Strength) #30 tabs chlorhexidine gluconate 0.12 % 15 ml buccal BID #118 mL 01/22/23 mouthwash (Peridex) clindamycin HCl 300 mg capsule 300 mg PO Q6H 7 days #28 caps 01/22/23 oxycodone 5 mg tablet 5 mg PO Q4H PRN severe pain (scale 01/22/23 score 7-10) #10 tabs Allergies Allergy/AdvReac Type Severity Reaction Status Date / Time No Known Allergies Allergy Unverified 08/05/20 17:53 Review of Systems Review of Systems: Yes all other systems are reviewed and are negative [facility] Past Medical History Medical History (Updated 01/22/23 @ 16:24 by JESSICA Hunter) Type 1 diabetes Social History Social History Household Members: Significant Other and Children Household Members Other:: 3 Housing: Apartment Do you presently have visiting nurse or other home services: No Patient Tobacco Use Status: Never used Tobacco Advance Directives: No Advance Directives Information Provided: No service: No Current occupational status: employed Physical Exam Vital Signs: Vital Signs: Last Vital Signs Temp 98.4 F 01/22/23 16:17 Pulse 101 H 01/22/23 16:17 Resp 20 01/22/23 16:17 BP 153/98 H 01/22/23 16:17 Pulse Ox 98 01/22/23 16:17 O2 Del Method 01/22/23 16:17 BMI result Body Mass Index 28.1 Appearance: Alert. Oriented X3. No acute distress. HEENT: CVS: Normal heart rate and rhythm. Pulses normal. Respiratory: No respiratory distress. Skin: Skin warm and dry. Normal skin color. Normal skin turgor. No rashes. Extremities: normal inspection x4, no joint swelling Neuro: Oriented X 3. No motor deficit. No sensory deficit. Course Course Course Narrative: 32 yo male Discharge Plan Discharge Clinical Impression: Pain, dental Patient Disposition: Home, Self-Care Instructions: Toothache (ED) Additional Instructions: Continue taking your previously prescribed amoxicillin and ibuprofen. Continue taking the newly prescribed antibiotic as directed. Complete the entire course. Recommend adding Tylenol 1000 mg every 6 hours around the clock. Take the prescribed oxycodone as needed for severe pain Use the antiseptic mouthwash 2 times a day. Ice your face several times per day. Follow-up with your dentist tomorrow. If you develop new or worsening symptoms call 911 or come back to the ER for further evaluation. Prescriptions: New chlorhexidine gluconate [Peridex] 0.12 % mouthwash 15 ml buccal BID Qty: 118 0RF acetaminophen [Tylenol Extra Strength] 500 mg tablet 1,000 mg PO Q6H PRN (Reason: fever or pain) Qty: 30 0RF oxycodone 5 mg tablet 5 mg PO Q4H PRN (Reason: severe pain (scale score 7-10)) Qty: 10 0RF Rx Instructions: Partial Fill upon patient request. clindamycin HCl 300 mg capsule 300 mg PO Q6H 7 Days Qty: 28 0RF No Action (DME) FreeStyle Lite Strips Strip Qty: 100 1RF Rx Instructions: Test four times a day or as directed. (DME) blood-glucose meter [FreeStyle Lite Meter] Kit Qty: 1 1RF Rx Instructions: As Directed alcohol swabs Pads, Medicated 1 pad TOPICAL QIDACHS Qty: 100 1RF Rx Instructions: Use four times a day or as directed. (DME) pen needle, diabetic 32 gauge x 1/4 Needle Qty: 100 1RF Rx Instructions: Use four times a day or as directed. (DME) lancets [FreeStyle Lancets] 28 gauge Misc Qty: 100 1RF Rx Instructions: Test four times a day or as directed. Levemir FlexTouch U-100 Insuln 100 unit/mL (3 mL) insulin pen 15 unit subcut BEDTIME Qty: 15 1RF insulin aspart U-100 [Novolog FlexPen U-100 Insulin] 100 unit/mL (3 mL) insulin pen 5 unit subcut TID Qty: 15 1RF Stand Alone Forms: Work/School Release Interventions: ED Discharge Assessment Last Done: 01/22/23 16:31 Discharge Date/Time: 01/22/23 16:32
== END 2023-01-22 16:32 | disposition home or self-care (01) ==
PROVIDERS: Emergency Provider Emergency Medicine
DX: K08.89 Other specified disorders of teeth and supporting structures (principal); E10.9 Type 1 diabetes mellitus without complications; Z79.4 Long term (current) use of insulin
CPT/HCPCS: 99282; 99283

== ENCOUNTER 2023-07-25 12:18 | Emergency (ER) | payer OTHER, SELFPAY ==
[2023-07-25 13:16] VITALS: BP 186/84; PULSE 85; RESP 16; TEMP 36.7; O2SAT 97; BMI 28.5
--- NOTE | 2023-07-25 13:16 | ED.EAR ---
HPI - Ear Problem General Chief complaint: Ear Problems Stated complaint: R ear infection Time Seen by Provider: 07/25/23 15:56 History of Present Illness HPI Narrative: 32 year old male with history of DM presents for several day history of right ear pain. Endorses worsening pain since last night. Reports yellow drainage, ringing in his ear, and trouble hearing. Reports fever 2 days ago and has since resolved. Reports taking Tylenol and trying OTC numbing ear drops. Denies cough, nasal congestion, sore throat, pain in left ear. Denies recent swimming. Does report using Q-tips daily. MD Complaint: ear pain Location: right ear Duration: constant Relieving factors: nothing Discharge from ear: yes - purulent Associated symptoms ear: fever, decreased hearing, external ear tenderness, ear swelling and tinnitus Treatment prior to arrival: attempt at ear wax removal Related Data Previous Rx's Medication Instructions Recorded alcohol swabs 1 pad topical QIDACHS #100 ea 06/27/22 blood sugar diagnostic (FreeStyle #100 ea 06/27/22 Lite Strips) blood-glucose meter (FreeStyle #1 ea 06/27/22 Lite Meter kit) insulin aspart U-100 100 unit/mL 5 unit (0.05 mL) subcut TID #15 mL 06/27/22 (3 mL) subcutaneous pen (Novolog FlexPen U-100 Insulin aspart) insulin detemir U-100 100 unit/mL 15 unit (0.15 mL) subcut BEDTIME 06/27/22 (3 mL) subcutaneous pen (Levemir #15 mL FlexTouch U-100 Insulin) lancets 28 gauge (FreeStyle #100 ea 06/27/22 Lancets) pen needle, diabetic 32 gauge x #100 ea 06/27/22 1/4 acetaminophen 500 mg tablet 1,000 mg PO Q6H PRN fever or pain 01/22/23 (Tylenol Extra Strength) #30 tabs chlorhexidine gluconate 0.12 % 15 ml buccal BID #118 mL 01/22/23 mouthwash (Peridex) clindamycin HCl 300 mg capsule 300 mg PO Q6H 7 days #28 caps 01/22/23 oxycodone 5 mg tablet 5 mg PO Q4H PRN severe pain (scale 01/22/23 score 7-10) #10 tabs ciprofloxacin 0.3 %-dexamethasone 4 drp otic (ears) BID 7 days #7.5 07/25/23 0.1 % ear drops,suspension mL (Ciprodex) ibuprofen 600 mg tablet 600 mg PO Q8H PRN pain #10 tabs 07/25/23 Allergies Allergy/AdvReac Type Severity Reaction Status Date / Time No Known Allergies Allergy Verified 07/25/23 13:18 Review of Systems Review of Systems: Yes all other systems are reviewed and are negative PMFSH Past Medical History Medical History (Updated 07/25/23 @ 17:29 by JESSICA Hunter) Type 1 diabetes Social History Social History Household Members: Significant Other and Children Household Members Other:: 3 Housing: Apartment Do you presently have visiting nurse or other home services: No Patient Tobacco Use Status: Never used Tobacco Advance Directives: No Advance Directives Information Provided: No service: No Current occupational status: employed Physical Exam Vital Signs: Vital Signs: Last Vital Signs Temp 98.0 F 07/25/23 13:16 Pulse 85 07/25/23 13:16 Resp 16 07/25/23 13:16 BP 186/84 H 07/25/23 13:16 Pulse Ox 97 07/25/23 13:16 O2 Del Method Room Air 07/25/23 13:16 BMI result Body Mass Index 28.5 Const: General: cooperative, healthy appearing, comfortable and no acute distress Orientation/consciousness: patient oriented x3 HEENT: Head: Yes normal to inspection Ears: TM normal on the right (Pain with retraction of pinna. Erythematous canal with macerated, purulent ), TM normal on the left, Abnormal EAC present (Erythematous right canal with macerated, purulent, white debris.) cerumen impaction on the right, erythema on the right, edema on the right and EAC tenderness on the right, hearing grossly impaired (Impaired on right side. ) on the right and other (Right ear pain with retraction of helix and palpation of tragus. ) Neuro: General: patient oriented x3 Course Course Course Narrative: This is a rapid medical exam. deferred additional HPI, ROS, PE to primary provider. 32 yo male with history of DM here with complaints of right ear pain x several days with ear drainage. Unable to visualize TM in the triage room d/t ear wax. Will need ear to be flushed to visualize TM VSS Procedures Ear Wax Removal Right Ear: Results: Re-examined: some cerumen remains TM Examination: TM(s) intact, normal appearance Ear Canal Exam: atraumatic Patient Tolerated Procedure: well and no complications Complications: no problems Technique: ear canal irrigated and ear canal curetted Additional Comments: evidence of otitis externa Medical Decision Making Medical Decision Making MDM Narrative: 32 year old male with history of DM presents to ER with right ear pain and discharge. Physical exam reveals impacted cerumen in right canal, as well as erythema, purulent fluid, white debris along ear canal. Left ear unremarkable. Irrigated the right ear with equal parts warm water and hydrogen peroxide. Carefully extracted some cerumen. Will discharge with prescription for antibiotic drops. Recommend avoiding use of Q-tips. Differential Diagnosis Differential Diagnoses: The differential diagnosis associated with the presentation includes Cerumen impaction, otitis externa, otitis media, mastoiditis, cholesteatoma Independent Historian Clinical information obtained from an independent historian. History obtained from or confirmed by: Spouse External Record Review External record reviewed: Prior outpatient labs Prescription Management I considered prescription management with: Antibiotic Prescription for ciprofloxacin ear drops. Chronic Conditions Patient?s care impacted by: Diabetes Critical Care Time Critical Care Time Critical Care Time: No Discharge Plan Discharge Clinical Impression: Otitis externa Patient Disposition: Home, Self-Care Instructions: Otitis Externa (DC) Additional Instructions: Use the prescribed antibiotic drops as directed for 1 week. Do not get water in your ear, use a cotton ball in the ear when you shower. Take the prescribed ibuprofen as needed for pain and discomfort. Do not put anything in the ear including Q-tips. If you develop new or worsening symptoms call 911 or come back to the ER for further evaluation. Prescriptions: New ciprofloxacin-dexamethasone [Ciprodex] 0.3-0.1 % drops,suspension 4 drp otic (ears) BID 7 Days Qty: 7.5 0RF ibuprofen 600 mg tablet 600 mg PO Q8H PRN (Reason: pain) Qty: 10 0RF No Action chlorhexidine gluconate [Peridex] 0.12 % mouthwash 15 ml buccal BID Qty: 118 0RF acetaminophen [Tylenol Extra Strength] 500 mg tablet 1,000 mg PO Q6H PRN (Reason: fever or pain) Qty: 30 0RF oxycodone 5 mg tablet 5 mg PO Q4H PRN (Reason: severe pain (scale score 7-10)) Qty: 10 0RF Rx Instructions: Partial Fill upon patient request. clindamycin HCl 300 mg capsule 300 mg PO Q6H 7 Days Qty: 28 0RF (DME) FreeStyle Lite Strips Strip Qty: 100 1RF Rx Instructions: Test four times a day or as directed. (DME) blood-glucose meter [FreeStyle Lite Meter] Kit Qty: 1 1RF Rx Instructions: As Directed alcohol swabs Pads, Medicated 1 pad TOPICAL QIDACHS Qty: 100 1RF Rx Instructions: Use four times a day or as directed. (DME) pen needle, diabetic 32 gauge x 1/4 Needle Qty: 100 1RF Rx Instructions: Use four times a day or as directed. (DME) lancets [FreeStyle Lancets] 28 gauge Misc Qty: 100 1RF Rx Instructions: Test four times a day or as directed. Levemir FlexTouch U100 Insulin 100 unit/mL (3 mL) insulin pen 15 unit subcut BEDTIME Qty: 15 1RF insulin aspart U-100 [Novolog FlexPen U-100 Insulin] 100 unit/mL (3 mL) insulin pen 5 unit subcut TID Qty: 15 1RF Referrals: Ammon Mckeon PA [Primary Care Provider] - Stand Alone Forms: Work/School Release Interventions: ED Discharge Assessment Last Done: 07/25/23 18:00 Discharge Date/Time: 07/25/23 18:01
--- NOTE | 2023-07-25 17:57 | PC.NURSE ---
pt a&ox3. respirations even and unlabored. pt reports right ear pain and drainage. pt denies nasuea, vomiting and chill at this time. pt denies recent fever.
== END 2023-07-25 18:01 | disposition home or self-care (01) ==
PROVIDERS: Emergency Provider Student in an Organized Health Care Education/Training Program; PCP Student in an Organized Health Care Education/Training Program
DX: H60.91 Unspecified otitis externa, right ear (principal); H93.11 Tinnitus, right ear; E10.9 Type 1 diabetes mellitus without complications; Z79.4 Long term (current) use of insulin; Z79.899 Other long term (current) drug therapy
CPT/HCPCS: 69210; 99282; 99283

== ENCOUNTER 2025-01-27 13:29 | Emergency (ER) | payer OTHER, SELFPAY ==
[2025-01-27 13:39] VITALS: BP 128/86; PULSE 112; RESP 18; TEMP 37.2; O2SAT 98; BMI 24.3
--- NOTE | 2025-01-27 13:42 | ED.GENADULT ---
HPI - General Adult General Chief complaint: Upper Respiratory Symptoms Stated complaint: Body aches, cough Time Seen by Provider: 01/27/25 15:22 Source: patient, RN notes reviewed and old records reviewed Mode of arrival: ambulatory Limitations: no limitations History of Present Illness ED Provider: Alex HPI narrative: 34-year-old male presents for evaluation of cough, congestion. He has had these symptoms as well the sore throat for the last 3 days. He denies any sick contacts. Denies any fevers but endorses chills Denies any chest pain or significant shortness of breath Related Data Previous Rx's ?Medication ?Instructions ?Recorded alcohol swabs 1 pad topical QIDACHS #100 ea 06/27/22 blood sugar diagnostic (FreeStyle #100 ea 06/27/22 Lite Strips) blood-glucose meter (FreeStyle #1 ea 06/27/22 Lite Meter kit) insulin aspart U-100 100 unit/mL 5 unit (0.05 mL) subcut TID #15 mL 06/27/22 (3 mL) subcutaneous pen (Novolog FlexPen U-100 Insulin aspart) insulin detemir U-100 100 unit/mL 15 unit (0.15 mL) subcut BEDTIME 06/27/22 (3 mL) subcutaneous pen (Levemir #15 mL FlexTouch U-100 Insulin) lancets 28 gauge (FreeStyle #100 ea 06/27/22 Lancets) pen needle, diabetic 32 gauge x #100 ea 06/27/22 1/ acetaminophen 500 mg tablet 1,000 mg (2 x 500 mg) PO Q6H PRN 01/22/23 (Tylenol Extra Strength) fever or pain #30 tabs chlorhexidine gluconate 0.12 % 15 ml buccal BID #118 mL 01/22/23 mouthwash (Peridex) clindamycin HCl 300 mg capsule 300 mg PO Q6H 7 days #28 caps 01/22/23 oxycodone 5 mg tablet 5 mg PO Q4H PRN severe pain (scale 01/22/23 score 7-10) #10 tabs ciprofloxacin 0.3 %-dexamethasone 4 drp otic (ears) BID 7 days #7.5 07/25/23 0.1 % ear drops,suspension mL (Ciprodex) ibuprofen 600 mg tablet 600 mg PO Q8H PRN pain #10 tabs 07/25/23 Allergies Allergy/AdvReac Type Severity Reaction Status Date / Time No Known Allergies Allergy Verified 01/27/25 13:40 Review of Systems Constitutional: Constitutional: Denies body ache(s), Reports chills, Denies fever(s), Denies frequent falls and Denies headache(s) Eyes: Eyes: Denies blurry vision ENT: Denies headache(s), Denies lip swelling, Denies epistaxis and Reports sore throat Cardiovascular: Cardiovascular: Denies chest pain and Denies dyspnea Respiratory: Respiratory: Reports cough and Denies dyspnea Gastrointestinal: Gastrointestinal: Denies abdominal pain, Denies nausea and Denies vomiting Musculoskeletal: Musculoskeletal: Denies back pain Integumentary/Breasts: Skin/Breast: Denies rash Neurologic: Denies frequent falls and Denies headache(s) Allergic/Immunologic: Allergic/Immunologic: Denies lip swelling PMFSH Past Medical History Medical History (Updated 01/27/25 @ 15:23 by Yeison Johnson) Type 1 diabetes Social History Social History Household Members: Significant Other and Children Household Members Other:: 3 Housing: Apartment Do you presently have visiting nurse or other home services: No Patient Tobacco Use Status: Never used Tobacco Advance Directives: No Advance Directives Information Provided: Yes service: No Current occupational status: employed Physical Exam ED Vital Signs: Vital Signs - 24 hr 01/27/25 13:39 01/27/25 15:29 Temperature 98.9 F 98.9 F Pulse Rate 112 H 112 H Respiratory Rate 18 18 Blood Pressure 128/86 128/86 Pulse Oximetry 98 98 Oxygen Delivery Method Room Air Room Air BMI result Body Mass Index 24.3 Const General: healthy appearing, comfortable, no acute distress, alert and awake Nutritional Appearance: well nourished Orientation/consciousness: patient oriented x3 HENMT Head: Yes normocephalic and Yes atraumatic Eyes Eyelids: Yes eyelids normal Conjunctivae: conjunctivae normal Sclerae: sclerae normal Corneas: corneas normal Pupils: Equal, round and reactive pupils present EOM: EOMs intact bilaterally Neck Neck: Yes full ROM Resp Effort & Inspection: normal respiratory effort, able to speak in complete sentences, no audible wheezes and not labored Auscultation: clear to auscultation bilaterally Skin General skin exam: elasticity normal Neuro General: patient oriented x3 Cranial nerves: Yes Equal, round and reactive pupils present and Yes Bilaterally intact EOM present Cognition (Neuro): normal cognition Extrem Other: Moving all extremities well without any obvious deformities Course Course Course Narrative: RME, this is a rapid medical exam performed by Wali Johnson please refer to primary provider for complete H&P- 34-year-old male presents for evaluation of cough, sore throat and body aches since last night. Plan for viral swabs. He is afebrile in triage Medical Decision Making Medical Decision Making MDM Narrative: 34-year-old male with past medical history significant for type 1 diabetes presents for evaluation of cough, congestion and sore throat. He tested positive for RSV. His vital signs are stable. His lungs are clear to auscultation, I discussed treatment options with symptomatic care he will be discharged to follow up with his outpatient providers Differential Diagnosis Differential Diagnoses: The differential diagnosis associated with the presentation includes RSV Influenza COVID-19 Bronchitis Pneumonia Lab Data Labs: Lab Results 01/27/25 Range/Units 13:52 Influenza Type A (PCR) NEGATIVE (Negative) Influenza Type B (PCR) NEGATIVE (Negative) RSV RNA Qual (PCR) POSITIVE A (Negative) SARS-CoV-2 RNA (RT-PCR) NEGATIVE (Negative) S. pyogenes GrpA TEO Negative (Negative) Tests considered The following testing was considered but not selected: Consider chest x-ray but ultimately the patient has stable vitals and lungs are clear to auscultation. Discharge Plan Discharge Clinical Impression: Respiratory syncytial virus Patient Disposition: Home, Self-Care Instructions: Respiratory Syncytial Virus (ED) Additional Instructions: You tested positive for a virus called RSV. This is not dangerous to healthy adults, but you should avoid babies and elderly. It is contagious You may use [id number] cough medicine, ibuprofen and Tylenol for fevers and body aches Prescriptions: No Action chlorhexidine gluconate [Peridex] 0.12 % mouthwash 15 ml buccal BID Qty: 118 0RF acetaminophen [Tylenol Extra Strength] 500 mg tablet 1,000 mg PO Q6H PRN (Reason: fever or pain) Qty: 30 0RF oxycodone 5 mg tablet 5 mg PO Q4H PRN (Reason: severe pain (scale score 7-10)) Qty: 10 0RF Rx Instructions: Partial Fill upon patient request. clindamycin HCl 300 mg capsule 300 mg PO Q6H 7 Days Qty: 28 0RF (DME) FreeStyle Lite Strips Strip Qty: 100 1RF Rx Instructions: Test four times a day or as directed. (DME) blood-glucose meter [FreeStyle Lite Meter] Kit Qty: 1 1RF Rx Instructions: As Directed alcohol swabs Pads, Medicated 1 pad TOPICAL QIDACHS Qty: 100 1RF Rx Instructions: Use four times a day or as directed. (DME) pen needle, diabetic 32 gauge x 1/4 Needle Qty: 100 1RF Rx Instructions: Use four times a day or as directed. (DME) lancets [FreeStyle Lancets] 28 gauge Misc Qty: 100 1RF Rx Instructions: Test four times a day or as directed. Levemir FlexTouch U100 Insulin 100 unit/mL (3 mL) insulin pen 15 unit subcut BEDTIME Qty: 15 1RF insulin aspart U-100 [Novolog FlexPen U-100 Insulin] 100 unit/mL (3 mL) insulin pen 5 unit subcut TID Qty: 15 1RF ciprofloxacin-dexamethasone [Ciprodex] 0.3-0.1 % drops,suspension 4 drp otic (ears) BID 7 Days Qty: 7.5 0RF ibuprofen 600 mg tablet 600 mg PO Q8H PRN (Reason: pain) Qty: 10 0RF Stand Alone Forms: Work/School Release Interventions: ED Discharge Assessment Last Done: 01/27/25 15:29 Discharge Date/Time: 01/27/25 15:30 Print Language: Belarusian
[2025-01-27 14:39] LABS: IDNOW Serial# 58CA691E; Strep A Nucleic Acid Negative (Negative)
[2025-01-27 14:46] LABS: Influenza A PCR NEGATIVE (Negative); Influenza B PCR NEGATIVE (Negative); Resp Syncy Virus RNA Qual PCR POSITIVE (Negative); SARS COV2 PCR INHOUSE NEGATIVE (Negative)
[2025-01-27 15:29] VITALS: BP 128/86; PULSE 112; RESP 18; TEMP 37.2; O2SAT 98
--- OUTSIDE RECORDS SUMMARY | 2025-01-27 17:02 | XMS_ITS | Clinical Summary ---
Author Organization [address] Address [address] [place] [address] Phone Care Team Providers Care Fur Blowing Machine Attendant Name Role Phone Jacob Cazares MD Primary Care Provider [phone] Allergies No known active allergies Medications lisinopriL (PRINIVIL,ZESTR IL) 10 mg tablet Take 1 tablet (10 mg total) by mouth 1 (one) time each day. 02/08/2018 Active amoxicillin (AMOXIL) 500 mg tablet Take 1 tablet (500 mg total) by mouth 2 (two) times a day. Active metFORMIN (GLUCOPHAGE) 500 mg tablet Take 2 tablets (1,000 mg total) by mouth 2 (two) times a day with meals. For 180 days 01/14/2018 Active blood-glucose meter (FREESTYLE LITE METER MISC) Use to check blood sugars daily 01/10/2018 Active glipiZIDE (GLUCOTROL XL) 2.5 mg 24 hr tablet Take 1 tab daily 01/10/2018 Active amitriptyline (ELAVIL) 25 mg tablet TAKE 1 TAB BY MOUTH AT BEDTIME. 09/07/2017 Active FREESTYLE LANCETS MISC Use to check blood sugars daily 05/11/2016 Active Active Problems Problem Noted Date Diagnosed Date Type 2 diabetes mellitus with complication 05/11 Essential hypertension 04/06/2016 Fatty liver 04/06/2016 Migraine without aura and wi thout status migrainosus, not intractable 04/06/2016 Insomnia 04/06/2016 Right ankle pain 04/06/2016 Immunizations Name Administration Dates Next Due Pneumococcal polysaccharide 23 valent (Pneumovax 23) 2yo and older 05/11/2016 Social History Tobacco Use Types Packs/Day Years Used Date Smoking Tobacco: Never Assessed Sex and Gender Information Value Date Recorded Sex Assigned at Not on file Legal Sex Male 10:11 AM EST Gender Identity Not on file Sexual Orientation Not on file Plan of Treatment Health Maintenance Due Date Last Done Comments Diabetes: Annual Foot Exam 1998 Diabetes: Annual Retina Eye Exam 1998 DTaP,Tdap,and Td Vaccines (1 - Tdap) 2007 Hepatitis B Vaccines (1 of 3 - 19+ 3-dose series) 2007 Pneumococcal Vaccine: Pediat rics (0 to 5 Years) and At-Risk Patients (6 to 64 Years) (2 of 2 - PCV) 05/11/2017 05/11/2016 Diabetes: Annual GFR (Glomer ular Filtration Rate) 01/14/2019 01/14/2018 Depression Screening 10/17/2022 HIV Screening 10/17/2022 Hepatitis C Screening 10/17/2022 Social Influencers of Health Screening 10/17/2022 Diabetes: Annual Urine Albumin-Creatinine Ratio (uACR) 11/03/2022 Diabetes: Blood Sugar Contro l Test (HGBA1C) 11/03/2022 01/14/2018 Hypertension/CHF/CAD Annual BMP Blood Test 11/03/2022 01/14/2018 Cholesterol Screening (Lipid Panel) 01/14/2023 01/14/2018 COVID-19 Vaccine ( - 2023-2 5 season) 2024 Influenza Vaccine (#1) 2024 HIB Vaccines Aged Out No longer eligi ble based on patient's age to complete this topic HPV Vaccines Aged Out No longer eligi ble based on patient's age to complete this topic Hepatitis A Vaccines Aged Out No long er eligible based on patient's age to complete this topic IPV Vaccines Aged Out No longer eligi ble based on patient's age to complete this topic MMR Vaccines Aged Out No longer eligi ble based on patient's age to complete this topic Meningococcal ACWY Vaccine Aged Out N o longer eligible based on patient's age to complete this topic Meningococcal B Vacine Aged Out No lo nger eligible based on patient's age to complete this topic RSV Immunization Patients Un coretta 20 months Aged Out No longer eligible b ased on patient's age to complete this topic Varicella Vaccines Aged Out No longer eligible based on patient's age to complete this topic Procedures Procedure Name Priority Date/Time Associated Diagnosis Comments ANNUAL BMP BLOOD TEST Routine 01/14/2018 HEMOGLOBIN A1C Routine 01/14/2018 LIPID PANEL Routine 01/14/2018 from Last 3 Months or Most Recently Relevant to Health Maintenance Results * Annual BMP Blood Test (01/14/2018) Pathologist [facility] Annual BMP Blood Test abstracted [facility] Provider HEALTH MAINTENANCE Final Result * (ABNORMAL) Hemoglobin A1c (01/14/2018) [facility] Hemoglobin A1C 8.2(A) 4.0 - 6.0 % Blood Venous blood specimen / Unknown Result [facility] Provider LAB BLOOD ORDERABLES Destinee l Result * (ABNORMAL) Lipid panel (01/14/2018) [facility] LDL/HDL Ratio 6(A) 0 - 4 Triglycerides 261(A) 0 - 150 mg/dL Cholesterol 214(A) 0 - 200 mg/dL HDL 34(A) >=40 mg/dL LDL Cholesterol 128(A) 0 - 100 mg/dL Blood Venous blood specimen / Unknown Historical Provider LAB BLOOD ORDERABLES Destinee l Result from Last 3 Months or Most Recently Relevant to Health Maintenance Care Teams Fur Blowing Machine Attendant Relationship Specialty Start Date End Date Jacob Cazares MD [address] [place] [address] PCP - General Internal Medicine 04/07/22
== END 2025-01-27 15:30 | disposition home or self-care (01) ==
PROVIDERS: Physician Assistant; Emergency Provider Student in an Organized Health Care Education/Training Program; PCP Student in an Organized Health Care Education/Training Program
DX: J22 Unspecified acute lower respiratory infection (principal); B97.4 Respiratory syncytial virus as the cause of diseases classified elsewhere; M79.10 Myalgia, unspecified site; R05.9 Cough, unspecified; Z03.818 Encounter for observation for suspected exposure to other biological agents ruled out
CPT/HCPCS: 0241U; 87651; 99282; 99283